=== PATIENT | female | born 1955 | race American Indian/Alaskan Native ===

== ENCOUNTER 2016-12-09 19:53 | Inpatient (IN) | payer OTHER ==
--- NOTE | 2016-12-09 20:45 | Emergency Department Report ---
ED Chest Pain HPI - General Chief Complaint: Chest Pain Stated Complaint: CHEST PAIN Time Seen by Provider: 12/09/16 20:09 Source: patient, EMS Mode of arrival: Stretcher Limitations: No Limitations - History of Present Illness Initial Comments: This is a 61-year-old Afro-[place] female presents to the emergency department via EMS from home with complaint of midsternal and left-sided chest pain with some radiation to the left side of the neck and left arm has been going on for the past 2 days. She thinks that it stemmed from the fact that her air conditioning is broken for the past week. She did not take anything at home for symptoms prior to presentation. It is associated with some shortness of breath, nausea, vomiting. She was found to have a pulse ox of 90% on room air with EMS that went up with supplemental oxygen. She has a past medical history of non-insulin dependent diabetes and fibromyalgia. She denies any history of MT, CVA, PE/DVT. Primary care doctor is a Dr. Cartagena. She does not have a tongue carrier. No recent travel or sick contacts at home. - Related Data Home Medications Medication Instructions Recorded Confirmed Last Taken Unobtainable 12/09/16 12/09/16 Unknown Allergies Allergy/AdvReac Type Severity Reaction Status Date / Time No Known Allergies Allergy Verified 12/09/16 20:01 Heart Score - HEART Score History: Moderately suspicious EKG: Non-specific Age: 45-65 Risk factors: 1-2 risk factors Troponin: < normal limit HEART Score: 4 - Critical Actions Critical Actions: 4-6 pts:12-16.6% risk of adverse cardiac event. Should be admitted ED Review of Systems ROS: Stated complaint: CHEST PAIN Other details as noted in HPI Comment: All other systems reviewed and negative Constitutional: denies: chills, fever Eyes: denies: eye pain, eye discharge, vision change ENT: denies: ear pain, throat pain Respiratory: cough, shortness of breath Cardiovascular: chest pain. denies: palpitations Gastrointestinal: nausea, vomiting Genitourinary: denies: urgency, dysuria, discharge Musculoskeletal: denies: back pain, joint swelling, arthralgia Skin: denies: rash, lesions Neurological: denies: headache, weakness, paresthesias ED Past Medical Hx - Past Medical History Previous Medical History?: Yes Hx Diabetes: Yes Additional medical history: Fibroidmylagia - Surgical History Past Surgical History?: No - Medications Home Medications: Home Medications Medication Instructions Recorded Confirmed Last Taken Type Unobtainable 12/09/16 12/09/16 Unknown History ED Physical Exam - General Limitations: No Limitations - Other Other exam information: GENERAL: The patient is well-developed well-nourished. HEENT: Normocephalic. Atraumatic. Extraocular motions are intact. Patient has moist mucous membranes. Pupils equal reactive to light bilaterally. NECK: Supple. Trachea is midline. CHEST/LUNGS: Clear to auscultation. No cough heard during examination. There is no respiratory distress noted. Chest pain is not reproducible to palpation of chest wall. HEART/CARDIOVASCULAR: Regular. There is mild to moderate tachycardia. There is no gallop rub or murmur. ABDOMEN: Abdomen is soft, nontender. Patient has normal bowel sounds. There is no abdominal distention. Obese habitus. SKIN: Skin is warm and dry. NEURO: The patient is awake, alert, and oriented. The patient is cooperative. The patient has no focal neurologic deficits. The patient has normal speech. MUSCULOSKELETAL: There is no tenderness or deformity. There is no limitation range of motion. There is no evidence of acute injury. ED Course Vital Signs 12/09/16 12/09/16 12/09/16 20:02 21:21 21:23 Pulse Rate 114 H 113 H Respiratory 18 18 12 Rate Blood Pressure 131/67 131/67 O2 Sat by Pulse 93 94 94 Oximetry 12/09/16 12/09/16 12/09/16 21:25 21:27 21:29 Pulse Rate 114 H 112 H 114 H Respiratory 22 12 16 Rate Blood Pressure 131/67 131/67 131/67 O2 Sat by Pulse 92 94 96 Oximetry 12/09/16 12/09/16 12/09/16 21:31 21:33 21:34 Pulse Rate 111 H 112 H 113 H Respiratory 14 14 21 Rate Blood Pressure 134/72 134/72 134/72 O2 Sat by Pulse 85 93 Oximetry 12/09/16 12/09/16 12/09/16 21:52 21:59 22:01 Pulse Rate 106 H Respiratory 18 17 Rate Blood Pressure 134/72 134/72 O2 Sat by Pulse 93 100 Oximetry 07/13/17 07/13/17 07/13/17 22:02 22:03 22:05 Pulse Rate 106 H 106 H 105 H Respiratory 15 20 20 Rate Blood Pressure 123/71 123/71 123/71 O2 Sat by Pulse 100 99 97 Oximetry 12/09/16 12/09/16 12/09/16 22:07 22:09 22:11 Pulse Rate 108 H 109 H 109 H Respiratory 16 16 29 H Rate Blood Pressure 123/71 123/71 123/71 O2 Sat by Pulse 95 96 100 Oximetry 12/09/16 12/09/16 12/09/16 22:13 22:15 22:17 Pulse Rate 109 H 107 H 105 H Respiratory 24 25 H 23 Rate Blood Pressure 123/71 123/71 123/71 O2 Sat by Pulse 100 100 99 Oximetry 12/09/16 12/09/16 12/09/16 22:19 22:21 22:23 Pulse Rate 108 H 107 H 107 H Respiratory 21 18 24 Rate Blood Pressure 123/71 123/71 123/71 O2 Sat by Pulse 99 100 100 Oximetry 12/09/16 12/09/16 12/09/16 22:25 22:27 22:29 Pulse Rate 107 H 108 H 109 H Respiratory 24 25 H 28 H Rate Blood Pressure 123/71 123/71 123/71 O2 Sat by Pulse 100 100 100 Oximetry 12/09/16 12/09/16 12/09/16 22:31 22:33 22:35 Pulse Rate 108 H 107 H 107 H Respiratory 25 H 26 H 27 H Rate Blood Pressure 123/71 123/71 134/72 O2 Sat by Pulse 100 100 100 Oximetry 12/09/16 12/09/16 12/09/16 22:37 22:39 22:41 Pulse Rate 107 H 107 H 107 H Respiratory 26 H 30 H 28 H Rate Blood Pressure 134/72 134/72 134/72 O2 Sat by Pulse 100 100 100 Oximetry 12/09/16 12/09/16 12/09/16 22:43 22:45 22:47 Pulse Rate 109 H 109 H 107 H Respiratory 26 H 31 H 21 Rate Blood Pressure 134/72 134/72 134/72 O2 Sat by Pulse 100 100 100 Oximetry 12/09/16 12/09/16 12/09/16 22:49 22:51 22:53 Pulse Rate 107 H 108 H 109 H Respiratory 23 25 H 24 Rate Blood Pressure 134/72 134/72 134/72 O2 Sat by Pulse 100 100 100 Oximetry 12/09/16 12/09/16 12/09/16 22:55 22:57 22:59 Pulse Rate 109 H 108 H 109 H Respiratory 28 H 21 23 Rate Blood Pressure 134/72 134/72 134/72 O2 Sat by Pulse 100 98 93 Oximetry 12/09/16 12/09/16 12/09/16 23:01 23:03 23:05 Pulse Rate 109 H 108 H 109 H Respiratory 19 17 19 Rate Blood Pressure 113/64 113/64 113/64 O2 Sat by Pulse 94 100 93 Oximetry 12/09/16 12/09/16 12/09/16 23:07 23:09 23:11 Pulse Rate 108 H 108 H 111 H Respiratory 24 25 H 16 Rate Blood Pressure 113/64 113/64 113/64 O2 Sat by Pulse 93 94 94 Oximetry 12/09/16 12/09/16 12/09/16 23:13 23:15 23:17 Pulse Rate 108 H 109 H 108 H Respiratory 22 24 24 Rate Blood Pressure 113/64 113/64 113/64 O2 Sat by Pulse 93 94 94 Oximetry 12/09/16 23:19 Pulse Rate 108 H Respiratory 32 H Rate Blood Pressure 113/64 O2 Sat by Pulse 93 Oximetry SONJA score - Sonja Score Age > 65: (0) No Aspirin use within the Past 7 Days: (0) No 3 or more CAD Risk Factors: (0) No 2 or more Angina events in past 24 hrs: (1) Yes Known CAD with more than 50% Stenosis: (0) No Elevated Cardiac Markers: (0) No ST Deviation Greater than 0.5mm: (0) No SONJA Score: 1 ED Medical Decision Making - Lab Data Result diagrams: 12/09/16 20:23 12/09/16 20:23 - EKG Data -: EKG Interpreted by Me EKG shows normal: sinus rhythm, axis, intervals, QRS complexes, ST-T waves (T- wave inversions to the inferior leads) Rate: tachycardia (120 bpm) - EKG Data When compared to previous EKG there are: previous EKG unavailable Interpretation: other (sinus tachycardia, normal axis, T-wave inversions to the inferior leads) - Radiology Data Radiology results: report reviewed, image reviewed interpreted by me: Chest x-ray does not show any obvious pneumonia, pneumothorax or pleural effusions. Mild cardiomegaly. PROCEDURE: CT ANGIO CHEST TECHNIQUE: Computerized tomographic angiography of the chest was performed after the IV injection of iodinated nonionic contrast including image processing. The image data was postprocessed using 2-dimensional multiplanar reformatted (MPR) and 3-dimensional (MIP and/or volume rendered) techniques. HISTORY: CP, elevated dimer COMPARISON: Chest x-ray today. FINDINGS: Lower neck: Enlarged heterogeneous thyroid gland with left lobe prominence with extension into the anterior superior mediastinum left paracentral location with multilobular multinodular appearance. Some of the masses are peripherally calcified such as left mid thyroid gland measuring 2.3 centimeters and similar size in the superior mediastinum posteriorly.. Recommend follow-up thyroid ultrasound further evaluate. Thyroid malignancy is the diagnosis of exclusion. Heart and pericardium: Normal. Thoracic aorta: Atherosclerosis aorta and branch vessels. Pulmonary vasculature: No significant PE. Lymph nodes: Scattered mediastinal adenopathy measuring 1 x 1.5 centimeters AP window right pretracheal areas. 1 x 1 centimeter in the right suprahilar area. Lungs/pleural space: Diffuse pulmonary emphysema with interstitial and patchy reticulonodular pattern throughout the lungs. There is a patchy airspace process in the left upper lobe medially suggesting infiltrative pneumonia however alveolar malignancy not excludable. There are scattered nodules and hazy nodules throughout the lungs including but not limited to: Round pulmonary nodule left apex measures 7 by 6 millimeters. Nonspecific hazy nodule right upper lung zone anteriorly 5 x 3 millimeters. Scattered hazy opacities in the lungs in the 1-2 millimeter range appearing nonspecific. Thickening in the mid lateral lung zones bilaterally suggesting scar-like cicatrix. Ovoid lesion in the right lower lung zone measuring 1.7 x 0.9 centimeters. Two hazy subjacent nodular opacities project in the left lower lung zone measuring in the 6 and 5 millimeter range image 64 with other nearby opacities measuring 10 millimeter 4 millimeter 3 millimeter 3 millimeter 5 millimeter emanating from the left infrahilar area. Small peripheral nodule in the left upper lung zone 5 millimeters. Underlying metastatic disease and or malignancy is the diagnosis of exclusion. Followup and further workup is advised. Musculoskeletal structures: Mild to moderate upper thoracic spine kyphosis. Slight patchy appearance of the bones. Degenerative changes. Defer to nuclear medicine bone scan evaluation as warranted.. Upper abdominal structures: Moderately enlarged heterogeneous liver. Diffuse pancreatic atrophy.. IMPRESSION: No evidence of PE Pulmonary emphysema with interstitial lung disease Reticular pattern with patchy areas of reticulonodular change and other areas of scattered nodules and hazy nodules. Metastatic disease is the diagnosis of exclusion. Underlying malignancy is not excludable. Followup and further workup is advised. Patchy airspace infiltrate left upper lobe, nonspecific Mild mediastinal adenopathy. Enlarged thyroid gland with multiple masses some of which are peripherally calcified on the left. Recommend thyroid ultrasound to further evaluate. Rule-out underlying thyroid malignancy. - Medical Decision Making 61-year-old female presents with a few days of chest pain as well as some shortness of breath with some nausea. Patient presents with tachycardia. First troponin negative. D-dimer elevated so a CT angiography was done. CT results show thyroid nodules, left upper lobe patchy opacity concerning for pneumonia and scattered lung nodules concerning for metastatic disease that needs to be ruled out as a diagnosis of exclusion. Patient had blood culture sent and started on Levaquin. She will be admitted to the hospital for further workup and evaluation of these findings and possible cardio consultation. She been accepted for admission by the hospitalist, Dr. Mayer. - Differential Diagnosis MT, CHF, pneumonia, PE Critical Care Time: No Critical care attestation.: If time is entered above; I have spent that time in minutes in the direct care of this critically ill patient, excluding procedure time. ED Disposition Clinical Impression: Thyroid nodule, Pulmonary nodules/lesions, multiple Chest pain Qualifiers: Chest pain type: unspecified Qualified Code(s): R07.9 - Chest pain, unspecified Pneumonia Qualifiers: Pneumonia type: due to unspecified organism Laterality: left Lung location: upper lobe of lung Qualified Code(s): J18.1 - Lobar pneumonia, unspecified organism Leukocytosis Qualifiers: Leukocytosis type: unspecified Qualified Code(s): D72.829 - Elevated white blood cell count, unspecified Disposition: 09 OP ADMIT IP TO THIS HOSP Is pt being admited?: Yes Condition: Stable Instructions: Chest Pain (ED), Bacterial Pneumonia (ED) Referrals: PRIMARY CARE, [Primary Care Provider] - 3-5 Days Time of Disposition: 23:42
[2016-12-09 20:48] LABS: Hematocrit 46.4 % (30.3-42.9); Mean Corpuscular HGB Conc 32 % (30-34); Mean Corpuscular Hemoglobin 26 pg (28-32); Mean Corpuscular Volume 81 fl (79-97); Platelet Count 222 K/mm3 (140-440); Red Blood Count 5.72 M/mm3 (3.65-5.03); Red Cell Distribution Width 14.4 % (13.2-15.2)
[2016-12-09 20:49] LABS: White Blood Count 27.8 K/mm3 (4.5-11.0)
[2016-12-09 21:01] LABS: Anion Gap 23 mmol/L; BUN/Creatinine Ratio 8.88; Blood Urea Nitrogen 8 mg/dL (7-17); Calcium 8.9 mg/dL (8.4-10.2); Carbon Dioxide 22 mmol/L (22-30); Chloride 91.2 mmol/L (98-107); Glucose 323 mg/dL (65-100); Potassium 3.9 mmol/L (3.6-5.0); Sodium 132 mmol/L (137-145)
[2016-12-09 21:18] LABS: Basophils % (Manual) 0 % (0.0-1.8); Blastocytes % (Manual) 0 %; Eosinophils % (Manual) 0 % (0.0-4.3)
[2016-12-09] MEDS ORDERED: MORPHINE IV ONE (21:18)
[2016-12-09 21:19] LABS: Diff Status Complete; RBC Morphology Normal
--- NOTE | 2016-12-09 21:31 | XRay Report ---
FINAL REPORT PROCEDURE: XR CHEST 1V AP TECHNIQUE: Chest radiograph anteroposterior view. CPT 47140 HISTORY: CP COMPARISON: No prior studies are available for comparison. FINDINGS: Heart: Normal. Mediastinum/Vessels: Mild central congestion. Fullness in the upper mediastinum may reflect thyroid enlargement. Lungs/Pleural space: COPD suspected with mild peribronchial cuffing and slight central bronchiectasis. Shallow inspiration with minimal lung base atelectasis Bony thorax: No acute osseous abnormality. Life support devices: None. IMPRESSION: Shallow inspiration with minimal lung base atelectasis.
[2016-12-09] MEDS ORDERED: ZOFRAN ONE (21:43)
[2016-12-09] MEDS ORDERED: ZOFRAN IV ONE (21:45)
--- NOTE | 2016-12-09 22:36 | Cat Scan Report ---
FINAL REPORT PROCEDURE: CT ANGIO CHEST TECHNIQUE: Computerized tomographic angiography of the chest was performed after the IV injection of iodinated nonionic contrast including image processing. The image data was postprocessed using 2-dimensional multiplanar reformatted (MPR) and 3-dimensional (MIP and/or volume rendered) techniques. HISTORY: CP, elevated dimer COMPARISON: Chest x-ray today. FINDINGS: Lower neck: Enlarged heterogeneous thyroid gland with left lobe prominence with extension into the anterior superior mediastinum left paracentral location with multilobular multinodular appearance. Some of the masses are peripherally calcified such as left mid thyroid gland measuring 2.3 centimeters and similar size in the superior mediastinum posteriorly.. Recommend follow-up thyroid ultrasound further evaluate. Thyroid malignancy is the diagnosis of exclusion. Heart and pericardium: Normal. Thoracic aorta: Atherosclerosis aorta and branch vessels. Pulmonary vasculature: No significant PE. Lymph nodes: Scattered mediastinal adenopathy measuring 1 x 1.5 centimeters AP window right pretracheal areas. 1 x 1 centimeter in the right suprahilar area. Lungs/pleural space: Diffuse pulmonary emphysema with interstitial and patchy reticulonodular pattern throughout the lungs. There is a patchy airspace process in the left upper lobe medially suggesting infiltrative pneumonia however alveolar malignancy not excludable. There are scattered nodules and hazy nodules throughout the lungs including but not limited to: Round pulmonary nodule left apex measures 7 by 6 millimeters. Nonspecific hazy nodule right upper lung zone anteriorly 5 x 3 millimeters. Scattered hazy opacities in the lungs in the 1-2 millimeter range appearing nonspecific. Thickening in the mid lateral lung zones bilaterally suggesting scar-like cicatrix. Ovoid lesion in the right lower lung zone measuring 1.7 x 0.9 centimeters. Two hazy subjacent nodular opacities project in the left lower lung zone measuring in the 6 and 5 millimeter range image 64 with other nearby opacities measuring 10 millimeter 4 millimeter 3 millimeter 3 millimeter 5 millimeter emanating from the left infrahilar area. Small peripheral nodule in the left upper lung zone 5 millimeters. Underlying metastatic disease and or malignancy is the diagnosis of exclusion. Followup and further workup is advised. Musculoskeletal structures: Mild to moderate upper thoracic spine kyphosis. Slight patchy appearance of the bones. Degenerative changes. Defer to nuclear medicine bone scan evaluation as warranted.. Upper abdominal structures: Moderately enlarged heterogeneous liver. Diffuse pancreatic atrophy.. IMPRESSION: No evidence of PE Pulmonary emphysema with interstitial lung disease Reticular pattern with patchy areas of reticulonodular change and other areas of scattered nodules and hazy nodules. Metastatic disease is the diagnosis of exclusion. Underlying malignancy is not excludable. Followup and further workup is advised. Patchy airspace infiltrate left upper lobe, nonspecific Mild mediastinal adenopathy. Enlarged thyroid gland with multiple masses some of which are peripherally calcified on the left. Recommend thyroid ultrasound to further evaluate. Rule-out underlying thyroid malignancy. Other details above.
[2016-12-09] MEDS ORDERED: LEVAQUIN 750MG/150ML 750 MG/150 ML BAG IV ONE (22:57)
[2016-12-09] MEDS ORDERED: DUONEB *Not for PRN Use IH ONE (23:42)
[2016-12-10] MEDS ORDERED: ZOFRAN IV PRN (00:58)
[2016-12-10] MEDS ORDERED: MORPHINE IV PRN (00:59)
[2016-12-10] MEDS ORDERED: NITROSTAT SL PRN (01:00)
--- NOTE | 2016-12-10 01:06 | History and Physical Report ---
History of Present Illness Date of examination: 12/10/16 Date of admission: 12/10/16 Chief complaint: Chief complaint is chest pain, other complaints including shortness of breath History of present illness: History of present illness, patient is a 61-year-old female who has been having substernal chest pain going on for about 2 days the pain is sharp in consistency radiates to the left side of the neck and left arm. Pain is associated with shortness of breath, nausea & vomiting, there is no history of dizziness, there is no history of fever or chills and also patient denied history of cough with patient stated she feels tired. Past History Past Medical History: arthritis, diabetes, hypertension, other (FIBROMYALGIA) Past Surgical History: bowel surgery Social history: other (SMOKES MARIJUANA) Medications and Allergies Allergies Allergy/AdvReac Type Severity Reaction Status Date / Time No Known Allergies Allergy Verified 12/09/16 20:01 Home Medications Medication Instructions Recorded Confirmed Last Taken Type Unobtainable 12/09/16 12/09/16 Unknown History Active Meds: Active Medications Acetaminophen (Tylenol) 650 mg PO Q4H PRN PRN Reason: For Pain/Fever/Headache Aspirin (Aspirin) 325 mg PO QDAY [facility] Heparin Sodium (Porcine) (Heparin) 5,000 unit SUB-Q Q12HR [facility] Azithromycin 500 mg/ Sodium (Chloride) 250 mls @ 250 mls/hr IV Q24HR [facility] Ceftriaxone Sodium (Rocephin/Ns 1 Gm/50 Ml) 1 gm in 50 mls @ 100 mls/hr IV Q24HR [facility] PRN Reason: Protocol Morphine Sulfate (Morphine) 2 mg IV Q3H PRN PRN Reason: Pain, Moderate (4-6) Nitroglycerin (Nitrostat) 0.4 mg SL Q5M [facility] Stop: 12/10/16 01:11 Nitroglycerin (Nitro-Bid 2%) 0.5 inch TP Q6H [facility] PRN Reason: Protocol Ondansetron HCl (Zofran) 4 mg IV Q6H PRN PRN Reason: Nausea And Vomiting Review of Systems Constitutional: fatigue, no weight loss, no weight gain, no fever, no sweats, no malaise, no lethargy, no poor appetite Eyes: bilateral: other (NO BILATERAL EYE SYMPTOMS) Ears, nose, mouth and throat: no ear pain, no ear discharge, no tinnitis, no decreased hearing, no nasal congestion, no nasal discharge, no sinus pressure, no dental pain, no mouth pain, no dysphagia, no hoarseness, no sore throat, no swelling in mouth, no swelling in throat, no headache, no vertigo, no pain front of neck Breasts: deferred Cardiovascular: chest pain, shortness of breath, high blood pressure, no orthopnea, no palpitations, no rapid/irregular heart beat, no syncope, no lightheadedness, no dyspnea on exertion Respiratory: shortness of breath, no cough, no cough with sputum, no hemoptysis , no congestion, no wheezing, no pain on inspiration, no respiratory infections Gastrointestinal: nausea, vomiting, no abdominal pain, no diarrhea, no constipation, no change in bowel habits, no hematemesis, no melena, no hematochezia, no loss of appetite, no early satiety, no heartburn, no jaundice, no dyspepsia/bloating, no early satiety Genitourinary Female: no dyspareunia, no menorrhagia, no urinary frequency, no stress incontinence, no post void dribbling, no incomplete emptying, no urge incontinence, no mixed incontinence, no vaginal odor, no abnormal vaginal bleeding, no vaginal dryness, no decreased libido Menstruation: postmenopausal Rectal: no pain, no incontinence, no itching, no hemorrhoids, no flatulence Musculoskeletal: no neck stiffness, no neck pain, no low back pain, no shooting leg pain, no morning stiffness, no muscle weakness, no muscle cramps, no myalgias, no atrophy, no frequent falls, no fractures, no loss of height, no prior amputations Integumentary: no rash, no pruritis, no redness, no sores, no wounds, no jaundice, no boils, no bullae, no darkening of skin, no depigmentation, no dryness, no color changes, no change in hair/nails, no brittle nails, no hirsutism, no foot/leg ulcers, no onychomycosis Neurological: no paralysis, no weakness, no parathesias, no numbness, no tingling, no seizures, no syncope, no tremors, no headaches, no migraines, no convulsions, no change in speech, no change in mentation, no confusion, no memory loss, no motor disturbance, no sensory deficit, no double vision, no loss of vision, no hearing difficulties, no burning pain, no paralysis Psychiatric: no change in sleep habits, no sleep disturbances, no insomnia, no hypersomnia, no change in appetite, no change in libido, no suicidal ideation, no disorientation, no depression, no hopelessness, no anhedonia, no anxiety attacks, no difficulties concentrating, no confusion, no irritability, no sadness/tearfullness Endocrine: no cold intolerance, no heat intolerance, no polyphagia, no excessive thirst, no polydipsia, no polyuria, no excessive sweating, no increase in ring/shoe/hat size, no deepening of the voice, no thyroid mass, no high blood sugars, no low blood sugars, no recent glucocorticoid use Hematologic/Lymphatic: no easy bruising, no easy bleeding, no lymphadenopathy, no lymphedema, no thrombophilia Allergic/Immunologic: no urticaria, no allergic rhinitis, no persistent infections, no anaphylaxis, no gluten intolerance, no seasonal allergies Exam - Constitutional Vitals: Temp Pulse Resp BP Pulse Ox 112 H 20 113/64 93 12/09/16 23:55 12/09/16 23:55 12/09/16 23:19 12/09/16 23:19 General appearance: Present: no acute distress - EENT Eyes: Present: PERRL, EOM intact. Absent: conjunctival injection, miosis ENT: hearing intact, clear oral mucosa - Neck Neck: Present: supple, normal ROM. Absent: rigidity, enlarged thyroid, carotid bruits - Respiratory Respiratory effort: normal - Cardiovascular Rhythm: regular Heart Sounds: Present: S1 & S2. Absent: gallop, systolic murmur, diastolic murmur, rub, click - Extremities Extremities: no ischemia, No edema Peripheral Pulses: within normal limits - Abdominal General gastrointestinal: Present: soft, non-tender, non-distended, normal bowel sounds. Absent: tender, distended, rigid, hypoactive bowel sounds, hepatomegaly, splenomegaly Female genitourinary: Present: deferred - Rectal Rectal Exam: deferred - Integumentary Integumentary: Present: clear, warm, dry. Absent: jaundice, clammy, normal turgor, decreased turgor - Musculoskeletal Musculoskeletal: strength equal bilaterally - Psychiatric Psychiatric: appropriate mood/affect - Neurologic Neurologic: CNII-XII intact Results - Labs CBC & Chem 7: 12/09/16 20:23 12/09/16 20:23 Labs: Laboratory Last Values WBC 27.8 K/mm3 (4.5-11.0) H 12/09/16 20:23 RBC 5.72 M/mm3 (3.65-5.03) H 12/09/16 20:23 Hgb 15.0 gm/dl (10.1-14.3) H 12/09/16 20:23 Hct 46.4 % (30.3-42.9) H 12/09/16 20:23 MCV 81 fl (79-97) 12/09/16 20:23 MCH 26 pg (28-32) L 12/09/16 20:23 MCHC 32 % (30-34) 12/09/16 20:23 RDW 14.4 % (13.2-15.2) 12/09/16 20:23 Plt Count 222 K/mm3 (140-440) 12/09/16 20:23 Add Manual Diff Complete 12/09/16 20:23 Total Counted 200 12/09/16 20:23 Seg Neuts % (Manual) 90.0 % (40.0-70.0) H 12/09/16 20:23 Band Neutrophils % 0 % 12/09/16 20:23 Lymphocytes % (Manual) 5.0 % (13.4-35.0) L 12/09/16 20:23 Reactive Lymphs % (Man) 0 % 12/09/16 20:23 Monocytes % (Manual) 5.0 % (0.0-7.3) 12/09/16 20:23 Eosinophils % (Manual) 0 % (0.0-4.3) 12/09/16 20:23 Basophils % (Manual) 0 % (0.0-1.8) 12/09/16 20:23 Metamyelocytes % 0 % 12/09/16 20:23 Myelocytes % 0 % 12/09/16 20:23 Promyelocytes % 0 % 12/09/16 20:23 Blast Cells % 0 % 12/09/16 20:23 Nucleated RBC % Not Reportable 12/09/16 20:23 Seg Neutrophils # Man 25.0 K/mm3 (1.8-7.7) H 12/09/16 20:23 Band Neutrophils # 0.0 K/mm3 12/09/16 20:23 Lymphocytes # (Manual) 1.4 K/mm3 (1.2-5.4) 12/09/16 20:23 Abs React Lymphs (Man) 0.0 K/mm3 12/09/16 20:23 Monocytes # (Manual) 1.4 K/mm3 (0.0-0.8) H 12/09/16 20:23 Eosinophils # (Manual) 0.0 K/mm3 (0.0-0.4) 12/09/16 20:23 Basophils # (Manual) 0.0 K/mm3 (0.0-0.1) 12/09/16 20:23 Metamyelocytes # 0.0 K/mm3 12/09/16 20:23 Myelocytes # 0.0 K/mm3 12/09/16 20:23 Promyelocytes # 0.0 K/mm3 12/09/16 20:23 Blast Cells # 0.0 K/mm3 12/09/16 20:23 WBC Morphology Not Reportable 12/09/16 20:23 Hypersegmented Neuts Not Reportable 12/09/16 20:23 Hyposegmented Neuts Not Reportable 12/09/16 20:23 Hypogranular Neuts Not Reportable 12/09/16 20:23 Smudge Cells Not Reportable 12/09/16 20:23 Toxic Granulation Not Reportable 12/09/16 20:23 Toxic Vacuolation Not Reportable 12/09/16 20:23 Dohle Bodies Not Reportable 12/09/16 20:23 Pelger-Huet Anomaly Not Reportable 12/09/16 20:23 [place] Rods Not Reportable 12/09/16 20:23 Platelet Estimate Appears normal 12/09/16 20:23 Clumped Platelets Not Reportable 12/09/16 20:23 Plt Clumps, EDTA Not Reportable 12/09/16 20:23 Large Platelets Not Reportable 12/09/16 20:23 Giant Platelets Not Reportable 12/09/16 20:23 Platelet Satelliting Not Reportable 12/09/16 20:23 Plt Morphology Comment Not Reportable 12/09/16 20:23 RBC Morphology Normal 12/09/16 20:23 Dimorphic RBCs Not Reportable 12/09/16 20:23 Polychromasia Not Reportable 12/09/16 20:23 Hypochromasia Not Reportable 12/09/16 20:23 Poikilocytosis Not Reportable 12/09/16 20:23 Anisocytosis Not Reportable 12/09/16 20:23 Microcytosis Not Reportable 12/09/16 20:23 Macrocytosis Not Reportable 12/09/16 20:23 Spherocytes Not Reportable 12/09/16 20:23 Pappenheimer Bodies Not Reportable 12/09/16 20:23 Sickle Cells Not Reportable 12/09/16 20:23 Target Cells Not Reportable 12/09/16 20:23 Tear Drop Cells Not Reportable 12/09/16 20:23 Ovalocytes Not Reportable 12/09/16 20:23 Helmet Cells Not Reportable 12/09/16 20:23 [place] Bodies Not Reportable 12/09/16 20:23 [place] Rings Not Reportable 12/09/16 20:23 [place] Cells Not Reportable 12/09/16 20:23 Bite Cells Not Reportable 12/09/16 20:23 Crenated Cell Not Reportable 12/09/16 20:23 Elliptocytes Not Reportable 12/09/16 20:23 Acanthocytes (Spur) Not Reportable 12/09/16 20:23 Rouleaux Not Reportable 12/09/16 20:23 Hemoglobin C Crystals Not Reportable 12/09/16 20:23 Schistocytes Not Reportable 12/09/16 20:23 Malaria parasites Not Reportable 12/09/16 20:23 Daniel Bodies Not Reportable 12/09/16 20:23 Hem Pathologist Commnt No 12/09/16 20:23 D-Dimer 235.71 ng/mlDDU (0-234) H 12/09/16 20:43 Sodium 132 mmol/L (137-145) L 12/09/16 20:23 Potassium 3.9 mmol/L (3.6-5.0) 12/09/16 20:23 Chloride 91.2 mmol/L (98-107) L 12/09/16 20:23 Carbon Dioxide 22 mmol/L (22-30) 12/09/16 20:23 Anion Gap 23 mmol/L 12/09/16 20:23 BUN 8 mg/dL (7-17) 12/09/16 20:23 Creatinine 0.9 mg/dL (0.7-1.2) 12/09/16 20:23 Estimated GFR > 60 ml/min 12/09/16 20:23 BUN/Creatinine Ratio 8.88 % 12/09/16 20:23 Glucose 323 mg/dL (65-100) H 12/09/16 20:23 Calcium 8.9 mg/dL (8.4-10.2) 12/09/16 20:23 Troponin T < 0.010 ng/mL (0.00-0.029) 12/09/16 23:06 Assessment and Plan - Patient Problems (1) Chest pain Current Visit: Yes Status: Acute Qualifiers: Chest pain type: unspecified Ischemic chest pain type: I Qualified Code(s ): R07.9 - Chest pain, unspecified Plan to address problem: Patient will be admitted to medical floor on telemetry and will have cardiac enzyme troponin checked every 6 hours 2 levels, patient will also be nothing by mouth for LEXISCAN stress dose and will be on aspirin 325 mg by mouth daily patient will be on Nitropaste half inch to anterior chest wall every 6 hours will be on oxygen by nasal cannula per chest pain Protocol. Patient will be on IV morphine 2 mg every 3 hours as needed for chest pain, pressure will have pulmonary consult with Dr. Rodriguez for multiple pulmonary nodules and family history of lung cancer in the mother. Patient will be on IV Zithromax 500 mg every 24 hours and IV ceftriaxone 1 g every 24 hours, patient will be on Tylenol 650 mg by mouth every 4 hours as needed for fever and Headache. (2) Leukocytosis Current Visit: Yes Status: Acute Qualifiers: Leukocytosis type: unspecified Qualified Code(s): D72.829 - Elevated white blood cell count, unspecified (3) Pneumonia Current Visit: Yes Status: Acute Qualifiers: Pneumonia type: due to unspecified organism Aspiration pneumonia type: A Laterality: left Lung location: upper lobe of lung Qualified Code(s): J18.1 - Lobar pneumonia, unspecified organism (4) Pulmonary nodules/lesions, multiple Current Visit: Yes Status: Acute (5) Thyroid nodule Current Visit: Yes Status: Acute
[2016-12-10] MEDS ORDERED: NITRO-BID 2% TP ONE (01:36)
[2016-12-10] MEDS: NITRO-BID 2% TP SCH ×4 (02:20→17:28)
[2016-12-10] MEDS ORDERED: LEXISCAN IV ONE ×2 (10:14→10:24)
--- NOTE | 2016-12-10 11:25 | Consultation ---
History of Present Illness Consult date: 12/10/16 Requesting physician: MARIO MOTT Reason for consult: abnormal CXR/CT, other (Multiple Pulmonary Nodules) History of present illness: PULMONARY/CCM PROGRESS NOTE (Full dictation # [id number]) Please see dictated notes for full details Past History Past Medical History: arthritis, diabetes, hypertension, other (FIBROMYALGIA) Past Surgical History: bowel surgery Social history: other (SMOKES MARIJUANA) Medications and Allergies Allergies Allergy/AdvReac Type Severity Reaction Status Date / Time No Known Allergies Allergy Verified 12/09/16 20:01 Home Medications Medication Instructions Recorded Confirmed Last Taken Type Unobtainable 12/09/16 12/09/16 Unknown History Active Meds: Active Medications Acetaminophen (Tylenol) 650 mg PO Q4H PRN PRN Reason: For Pain/Fever/Headache Aspirin (Aspirin) 325 mg PO QDAY [facility] Heparin Sodium (Porcine) (Heparin) 5,000 unit SUB-Q Q12HR [facility] Azithromycin 500 mg/ Sodium (Chloride) 250 mls @ 250 mls/hr IV Q24HR [facility] Ceftriaxone Sodium (Rocephin/Ns 1 Gm/50 Ml) 1 gm in 50 mls @ 100 mls/hr IV Q24HR [facility] PRN Reason: Protocol Morphine Sulfate (Morphine) 2 mg IV Q3H PRN PRN Reason: Pain, Moderate (4-6) Nitroglycerin (Nitro-Bid 2%) 0.5 inch TP QIDNTG [facility] PRN Reason: Protocol Last Admin: 12/10/16 05:30 Dose: 0.5 inch Ondansetron HCl (Zofran) 4 mg IV Q6H PRN PRN Reason: Nausea And Vomiting Last Admin: 12/10/16 02:21 Dose: 4 mg Pneumococcal Polyvalent Vaccine (Pneumovax 23) 0.5 ml IM .ONCE ONE Stop: 12/10/16 12:01 Physical Examination Vital signs: Vital Signs Resp Pulse Ox 18 93 12/09/16 20:02 12/09/16 20:02 Results - Laboratory Findings CBC and BMP: 12/09/16 20:23 12/09/16 20:23 PT/INR, D-dimer D-Dimer 235.71 ng/mlDDU (0-234) H 12/09/16 20:43
--- NOTE | 2016-12-10 11:51 | Event Note ---
Date: 12/10/16 Stress MPI: 1. Normal myocardial perfusion scan without evidence of significant ischemia or prior infarct 2. Normal left ventricular systolic performance without evidence of TID
[2016-12-10] MEDS ORDERED: PNEUMOVAX 23 IM ONE (12:00)
[2016-12-10] MEDS: ROCEPHIN/NS 1 GM/50 ML 1 GM/50 ML BAG IV SCH (12:00)
[2016-12-10] MEDS: ASPIRIN PO SCH (12:09)
[2016-12-10] MEDS: ZITHROMAX 500 MG in NACL 0.9% 250ML 250 ML IV SCH (12:18)
[2016-12-10] MEDS: HEPARIN SUB-Q SCH ×2 (12:19→21:45)
--- NOTE | 2016-12-10 12:28 | Admit Criteria Form ---
Admission Criteria Documentation: CHEST PAIN Clinical Indications for Admission to Inpatient Care (Place 'X' for any and all applicable criteria): Admission is indicated for chest pain and ANY ONE of the following(1)(2)(3)(4)(5 ): [ ]I. Angina with acute coronary syndrome (Also use Myocardial Infarction or Angina guideline) [ ]II. Hemodynamic instability [ ]III. Angina needing acute intervention as indicated by ALL of the following( 11)(12): [ ]a) Unstable angina is present as indicated by angina that is ANY ONE of the following: [ ]i) New onset [ ]ii) Nocturnal [ ]iii) Prolonged at rest [ ]iv) Progressive [ ]b) Angina warrants acute intervention as indicated by ANY ONE of the following: [ ]i) Recurrent angina (e.g, not responding as previously to treatment) [ ]ii) Angina at rest or with low-level activities despite initial medical therapy [ ]iii) New or presumably new ST-segment depression on ECG [ ]iv) Signs or symptoms of heart failure (eg, dyspnea, pulmonary edema) [ ]v) New or worsening mitral regurgitation [ ]vi) Hemodynamic instability [ ]vii) Dangerous arrhythmia (eg, sustained ventricular tachycardia) [ ]viii) History of percutaneous coronary intervention within 6 months [ ]ix) History of coronary artery bypass graft surgery [ ]x) SONJA risk score of 2 or greater[A] [ ]xi) History of Diabetes(14) [ ]xii) High-risk cardiac ischemia findings on noninvasive testing (e.g, echocardiogram, treadmill testing, nuclear scan) [ ]xiii) Chronic renal insufficiency (ie, estimated GFR less than 60 mL/min/1.732m) [ ]xiv) Left ventricular ejection fraction less than 40% [ ]IV. Evidence of AR (eg, cardiac biomarkers positive, ST-segment elevation on ECG) also use Myocardial Infarction Criteria Form. [ ]V. Pulmonary edema [ ]. Respiratory distress [ ]VII. Chest pain indicative of serious diagnosis other than coronary artery disease (eg, aortic dissection) [ ]VIII. Contraindications and/or Inappropriate clinical situations for Observational Care in patients with Chest Pain, when ANY ONE of the following is required: [ ]a) Patient with risk factor for pulmonary embolism, acute coronary syndrome and myocardial infarction (18) [ ]b) Patient with Pulmonary embolism require an average LOS of 4.3 days, therefore emergency department observation management is inappropriate 18,23 [ ]c) Painful condition/s in the elderly, have the highest rate of recidivism after emergency department observation management (10.8%) 20,21,22 [ ]d) Elevated cardiac biomarker requires intensive and exhaustive care (19) [X ]IX. General contraindications and/or Inappropriate clinical situations for Observational Care in patients with Chest Pain, when ANY ONE of the following is required: [X ]a) Prediction of prolongation of LOS based on ANY ONE of the following may be considered as a contraindication for observational care 2, 3, 4, 5, 6, 7, 8, 9, 10, 11 [ ]i) Age > 65 yrs. [X ]ii) Patient arriving by ambulance [ ]iii) Patient with high acuity [ ]iv) Patient requiring vital sign monitoring [ ]v) Patient on IV medication [ ]b) Systolic blood pressures 180mmHg 3,12 [ ]c) Patient with altered mental status including delirium and other alteration of consciousness, (3) [ ]d) Patient whose discharge disposition will be to a [facility] home or rehabilitation home should not be managed in Emergency Department Observation Unit. CMS rule requires 3 days hospital stay before such placement. 3,13 [ ]e) Patient with failure to thrive due to broad array of etiologies 3,16,17 [ ]f) Inability to ambulate 3,14 Extended stay beyond goal length of stay may be needed for (1)(28): [ ]a) Specific condition diagnosed after evaluation (eg, pulmonary embolism, aortic dissection) [ ]b) Unstable angina [ ]c) Continued suspicion of acute coronary syndrome with inability to complete needed cardiac evaluation (eg, patient clinically unable to undergo stress testing) [ ]d) Myocardial infarction (Contents from ANGINA and CHEST PAIN clinical indications for admission to inpatient care have been integrated in this form) The original [facility] content created by [employer] has been revised. The portions of the content which have been revised are identified through the use of italic text or in bold, and [facility] [employer] has neither reviewed nor approved the modified material. All other unmodified content is copyright [facility]. Please see references footnoted in the original [facility] [employer] edition 2016 Admission Criteria Met: Yes
[2016-12-10] MEDS ORDERED: NACL 0.9% 250ML 250 ML ONE (14:05)
--- NOTE | 2016-12-10 17:38 | Event Note ---
Date: 12/10/16 She was admitted this morning with altered level of consciousness generalized weakness and fever He did medical records reviewed, agree with current management Follow cultures, recent patchy infiltrates on CT, pulmonary critical consultation Closely monitor, continue current management
[2016-12-11] MEDS: TYLENOL PO PRN (05:55)
[2016-12-11] MEDS: NITRO-BID 2% TP SCH ×5 (05:56→17:18)
[2016-12-11] MEDS: ASPIRIN PO SCH (09:50)
[2016-12-11] MEDS: HEPARIN SUB-Q SCH ×2 (09:50→22:55)
[2016-12-11] MEDS: ROCEPHIN/NS 1 GM/50 ML 1 GM/50 ML BAG IV SCH (09:50)
[2016-12-11] MEDS: ZITHROMAX 500 MG in NACL 0.9% 250ML 250 ML IV SCH (10:41)
[2016-12-11] MEDS ORDERED: PNEUMOVAX 23 IM ONE (12:00)
[2016-12-11 12:01] LABS: Hematocrit 40.9 % (30.3-42.9); Hemoglobin 13.6 gm/dl (10.1-14.3); Mean Corpuscular HGB Conc 33 % (30-34); Mean Corpuscular Hemoglobin 27 pg (28-32); Mean Corpuscular Volume 81 fl (79-97); Platelet Count 236 K/mm3 (140-440); Red Blood Count 5.04 M/mm3 (3.65-5.03); Red Cell Distribution Width 14.3 % (13.2-15.2)
[2016-12-11 12:05] LABS: Anion Gap 19 mmol/L; BUN/Creatinine Ratio 14.44; Blood Urea Nitrogen 13 mg/dL (7-17); Calcium 9.1 mg/dL (8.4-10.2); Carbon Dioxide 24 mmol/L (22-30); Chloride 90.8 mmol/L (98-107); Glucose 380 mg/dL (65-100); Potassium 4.3 mmol/L (3.6-5.0); Sodium 129 mmol/L (137-145)
[2016-12-11 12:22] LABS: White Blood Count 21.5 K/mm3 (4.5-11.0)
[2016-12-11 14:30] LABS: Anisocytosis 1+; Basophils % (Manual) 0 % (0.0-1.8); Blastocytes % (Manual) 0 %; Diff Status Complete; Eosinophils % (Manual) 0 % (0.0-4.3); Platelet Estimate Consistent w Auto
--- NOTE | 2016-12-11 16:17 | Progress Note ---
Subjective Date of service: 12/11/16 Interval history: Seen and examined at bedside; 24 hour events reviewed; nursing and respiratory care staff consulted; no adverse overnight events reported to me; Objective Vital Signs - 12hr 12/11/16 12/11/16 12/11/16 05:30 09:00 13:00 Temperature 98.4 F 98.9 F 98.1 F Pulse Rate [ 92 H 98 H 90 Apical] Pulse Rate [ 92 H 98 H 90 Left Dorsalis Pedis] Pulse Rate [ 92 H 98 H 90 Left Radial] Pulse Rate [ 92 H 98 H 90 Right Dorsalis Pedis] Pulse Rate [ 92 H 98 H 90 Right Radial] Respiratory 18 18 18 Rate Blood Pressure 153/70 129/81 141/84 [Right Arm] O2 Sat by Pulse 95 95 96 Oximetry 12/11/16 13:01 Temperature Pulse Rate [ Apical] Pulse Rate [ Left Dorsalis Pedis] Pulse Rate [ Left Radial] Pulse Rate [ Right Dorsalis Pedis] Pulse Rate [ Right Radial] Respiratory Rate Blood Pressure [Right Arm] O2 Sat by Pulse 95 Oximetry CBC and BMP: 12/11/16 10:56 12/11/16 10:56 ABG, PT/INR, D-dimer: PT/INR, D-dimer D-Dimer 235.71 ng/mlDDU (0-234) H 12/09/16 20:43 Abnormal lab findings: Abnormal Labs 12/11/16 12/11/16 10:56 10:56 WBC 21.5 H RBC 5.04 H MCH 27 L Seg Neuts % (Manual) 80.0 H Lymphocytes % (Manual) 13.0 L Seg Neutrophils # Man 17.2 H Monocytes # (Manual) 1.5 H Sodium 129 L Chloride 90.8 L Glucose 380 H
--- NOTE | 2016-12-11 17:08 | Progress Note ---
Assessment and Plan Assessment and plan: --chest pain, Evaluation for acute coronary syndrome Lexiscan stress test negative for reversible ischemia, normal left ventricle function, continue current cardiac medications --Pneumonia probably community-acquired IV antibiotics, oxygen titrate O2 sats more than 90%, follow cultures, cough medicine, supportive care --Hyponatremia; replacement therapy, closely monitor levels --Incidental findings of multiple pulmonary nodules and lesions; No symptoms, pulmonary following for further evaluation and management --Thyroid nodule; CT-guided biopsy in 2 days --Leukocytosis secondary to underlying sepsis and pneumonia Trending down, continue antibiotics, supportive care --DVT prophylaxis Lovenox --Full CODE STATUS We will closely monitor the patient and just the management as needed Pulmonary evaluation and recommendations noted and appreciated History Interval history: Patient seen and evaluated in her room this morning medical records reviewed No new events reported by the nursing staff, stress test is negative for reversible ischemia and preserved left ventricular function Patient feels better denies any chest pain or shortness of breath Alert awake oriented 3 not in acute distress, vital signs reviewed Hospitalist Physical - Constitutional Vitals: Temp Pulse Resp BP Pulse Ox 98.1 F 90 18 141/84 95 12/11/16 13:00 12/11/16 13:00 12/11/16 13:00 12/11/16 13:00 12/11/16 13:01 General appearance: Present: no acute distress, well-nourished, obese - EENT Eyes: Present: PERRL, EOM intact - Neck Neck: Present: supple, normal ROM - Respiratory Respiratory effort: normal Respiratory: bilateral: diminished, rhonchi (occasional), negative: rales, wheezing - Cardiovascular Rhythm: regular Heart Sounds: Present: S1 & S2 - Extremities Extremities: no ischemia, pulses intact, pulses symmetrical Peripheral Pulses: within normal limits - Abdominal General gastrointestinal: soft, non-tender, non-distended, normal bowel sounds - Integumentary Integumentary: Present: clear, warm - Psychiatric Psychiatric: appropriate mood/affect, cooperative - Neurologic Neurologic: CNII-XII intact, moves all extremities Results - Labs CBC & Chem 7: 12/11/16 10:56 12/11/16 10:56 Labs: Laboratory Last Values WBC 21.5 K/mm3 (4.5-11.0) H 12/11/16 10:56 RBC 5.04 M/mm3 (3.65-5.03) H 12/11/16 10:56 Hgb 13.6 gm/dl (10.1-14.3) 12/11/16 10:56 Hct 40.9 % (30.3-42.9) 12/11/16 10:56 MCV 81 fl (79-97) 12/11/16 10:56 MCH 27 pg (28-32) L 12/11/16 10:56 MCHC 33 % (30-34) 12/11/16 10:56 RDW 14.3 % (13.2-15.2) 12/11/16 10:56 Plt Count 236 K/mm3 (140-440) 12/11/16 10:56 Add Manual Diff Complete 12/11/16 10:56 Total Counted 200 12/11/16 10:56 Seg Neuts % (Manual) 80.0 % (40.0-70.0) H 12/11/16 10:56 Band Neutrophils % 0 % 12/11/16 10:56 Lymphocytes % (Manual) 13.0 % (13.4-35.0) L 12/11/16 10:56 Reactive Lymphs % (Man) 0 % 12/11/16 10:56 Monocytes % (Manual) 7.0 % (0.0-7.3) 12/11/16 10:56 Eosinophils % (Manual) 0 % (0.0-4.3) 12/11/16 10:56 Basophils % (Manual) 0 % (0.0-1.8) 12/11/16 10:56 Metamyelocytes % 0 % 12/11/16 10:56 Myelocytes % 0 % 12/11/16 10:56 Promyelocytes % 0 % 12/11/16 10:56 Blast Cells % 0 % 12/11/16 10:56 Nucleated RBC % Not Reportable 12/11/16 10:56 Seg Neutrophils # Man 17.2 K/mm3 (1.8-7.7) H 12/11/16 10:56 Band Neutrophils # 0.0 K/mm3 12/11/16 10:56 Lymphocytes # (Manual) 2.8 K/mm3 (1.2-5.4) 12/11/16 10:56 Abs React Lymphs (Man) 0.0 K/mm3 12/11/16 10:56 Monocytes # (Manual) 1.5 K/mm3 (0.0-0.8) H 12/11/16 10:56 Eosinophils # (Manual) 0.0 K/mm3 (0.0-0.4) 12/11/16 10:56 Basophils # (Manual) 0.0 K/mm3 (0.0-0.1) 12/11/16 10:56 Metamyelocytes # 0.0 K/mm3 12/11/16 10:56 Myelocytes # 0.0 K/mm3 12/11/16 10:56 Promyelocytes # 0.0 K/mm3 12/11/16 10:56 Blast Cells # 0.0 K/mm3 12/11/16 10:56 WBC Morphology Not Reportable 12/11/16 10:56 Hypersegmented Neuts Not Reportable 12/11/16 10:56 Hyposegmented Neuts Not Reportable 12/11/16 10:56 Hypogranular Neuts Not Reportable 12/11/16 10:56 Smudge Cells Not Reportable 12/11/16 10:56 Toxic Granulation Not Reportable 12/11/16 10:56 Toxic Vacuolation Not Reportable 12/11/16 10:56 Dohle Bodies Not Reportable 12/11/16 10:56 Pelger-Huet Anomaly Not Reportable 12/11/16 10:56 [place] Rods Not Reportable 12/11/16 10:56 Platelet Estimate Consistent w auto 12/11/16 10:56 Clumped Platelets Not Reportable 12/11/16 10:56 Plt Clumps, EDTA Not Reportable 12/11/16 10:56 Large Platelets Not Reportable 12/11/16 10:56 Giant Platelets Not Reportable 12/11/16 10:56 Platelet Satelliting Not Reportable 12/11/16 10:56 Plt Morphology Comment Not Reportable 12/11/16 10:56 RBC Morphology Not Reportable 12/11/16 10:56 Dimorphic RBCs Not Reportable 12/11/16 10:56 Polychromasia Not Reportable 12/11/16 10:56 Hypochromasia Not Reportable 12/11/16 10:56 Poikilocytosis Not Reportable 12/11/16 10:56 Anisocytosis 1+ 12/11/16 10:56 Microcytosis Not Reportable 12/11/16 10:56 Macrocytosis Not Reportable 12/11/16 10:56 Spherocytes Not Reportable 12/11/16 10:56 Pappenheimer Bodies Not Reportable 12/11/16 10:56 Sickle Cells Not Reportable 12/11/16 10:56 Target Cells Not Reportable 12/11/16 10:56 Tear Drop Cells Not Reportable 12/11/16 10:56 Ovalocytes Not Reportable 12/11/16 10:56 Helmet Cells Not Reportable 12/11/16 10:56 [place] Bodies Not Reportable 12/11/16 10:56 [place] Rings Not Reportable 12/11/16 10:56 Estefany Cells Not Reportable 12/11/16 10:56 Bite Cells Not Reportable 12/11/16 10:56 Crenated Cell Not Reportable 12/11/16 10:56 Elliptocytes Not Reportable 12/11/16 10:56 Acanthocytes (Spur) Not Reportable 12/11/16 10:56 Rouleaux Not Reportable 12/11/16 10:56 Hemoglobin C Crystals Not Reportable 12/11/16 10:56 Schistocytes Not Reportable 12/11/16 10:56 Malaria parasites Not Reportable 12/11/16 10:56 Daniel Bodies Not Reportable 12/11/16 10:56 Hem Pathologist Commnt No 12/11/16 10:56 D-Dimer 235.71 ng/mlDDU (0-234) H 12/09/16 20:43 Sodium 129 mmol/L (137-145) L 12/11/16 10:56 Potassium 4.3 mmol/L (3.6-5.0) 12/11/16 10:56 Chloride 90.8 mmol/L (98-107) L 12/11/16 10:56 Carbon Dioxide 24 mmol/L (22-30) 12/11/16 10:56 Anion Gap 19 mmol/L 12/11/16 10:56 BUN 13 mg/dL (7-17) 12/11/16 10:56 Creatinine 0.9 mg/dL (0.7-1.2) 12/11/16 10:56 Estimated GFR > 60 ml/min 12/11/16 10:56 BUN/Creatinine Ratio 14.44 % 12/11/16 10:56 Glucose 380 mg/dL (65-100) H 12/11/16 10:56 Calcium 9.1 mg/dL (8.4-10.2) 12/11/16 10:56 Troponin T < 0.010 ng/mL (0.00-0.029) 12/10/16 14:53
[2016-12-12] MEDS: NITRO-BID 2% TP SCH ×4 (06:22→17:58)
[2016-12-12] MEDS: TYLENOL PO PRN (06:34)
[2016-12-12 09:07] LABS: Hematocrit 41.9 % (30.3-42.9); Hemoglobin 13.8 gm/dl (10.1-14.3); Mean Corpuscular HGB Conc 33 % (30-34); Mean Corpuscular Hemoglobin 28 pg (28-32); Mean Corpuscular Volume 84 fl (79-97); Platelet Count 247 K/mm3 (140-440); Red Blood Count 4.98 M/mm3 (3.65-5.03); Red Cell Distribution Width 14.4 % (13.2-15.2); White Blood Count 12.8 K/mm3 (4.5-11.0)
[2016-12-12] MEDS: ROCEPHIN/NS 1 GM/50 ML 1 GM/50 ML BAG IV SCH (09:15)
[2016-12-12] MEDS: ASPIRIN PO SCH (09:15)
[2016-12-12] MEDS: HEPARIN SUB-Q SCH ×2 (09:16→21:18)
[2016-12-12] MEDS: ZITHROMAX 500 MG in NACL 0.9% 250ML 250 ML IV SCH (09:58)
[2016-12-12 10:07] LABS: Anion Gap 26 mmol/L; BUN/Creatinine Ratio 14.44; Basophils % (Manual) 0 % (0.0-1.8); Blastocytes % (Manual) 0 %; Blood Urea Nitrogen 13 mg/dL (7-17); Calcium 9.1 mg/dL (8.4-10.2); Carbon Dioxide 18 mmol/L (22-30); Eosinophils % (Manual) 0 % (0.0-4.3); Glucose 341 mg/dL (65-100); Sodium 131 mmol/L (137-145)
[2016-12-12 10:08] LABS: Anisocytosis 1+; Diff Status Complete; Platelet Estimate Consistent w Auto
--- NOTE | 2016-12-12 10:54 | Progress Note ---
Assessment and Plan Assessment and plan: --Pneumonia probably community-acquired IV antibiotics, oxygen titrate O2 sats more than 90%, follow cultures, cough medicine, supportive care --Incidental findings of multiple pulmonary nodules and lesions; No symptoms, pulmonary following. Possible CT-guided biopsy --chest pain, Evaluation for acute coronary syndrome Lexiscan stress test negative for reversible ischemia, normal left ventricle function, continue current cardiac medications --Type 2 diabetes mellitus; uncontrolled, Accu-Chek sliding scale coverage, ADA diet, hold metformin in view of the seizures 70/30 insulin as needed --Hyponatremia; replacement therapy, closely monitor levels --Thyroid nodule; CT-guided biopsy tomorrow, nothing by mouth from midnight for the procedure --Leukocytosis secondary to underlying sepsis and pneumonia Trending down, continue antibiotics, supportive care --DVT prophylaxis Lovenox --Full CODE STATUS We will closely monitor the patient and just the management as needed Pulmonary evaluation and recommendations noted and appreciated Plan of care discussed with the patient Hospitalist Physical - Constitutional Vitals: Temp Pulse Resp BP Pulse Ox 97.3 F L 88 18 121/82 98 12/12/16 08:27 12/12/16 10:21 12/12/16 08:27 12/12/16 08:27 12/12/16 10:07 General appearance: Present: no acute distress, well-nourished, obese Results - Labs CBC & Chem 7: 12/12/16 07:52 12/12/16 07:52 Labs: Laboratory Last Values WBC 12.8 K/mm3 (4.5-11.0) H 12/12/16 07:52 RBC 4.98 M/mm3 (3.65-5.03) 12/12/16 07:52 Hgb 13.8 gm/dl (10.1-14.3) 12/12/16 07:52 Hct 41.9 % (30.3-42.9) 12/12/16 07:52 MCV 84 fl (79-97) D 12/12/16 07:52 MCH 28 pg (28-32) 12/12/16 07:52 MCHC 33 % (30-34) 12/12/16 07:52 RDW 14.4 % (13.2-15.2) 12/12/16 07:52 Plt Count 247 K/mm3 (140-440) 12/12/16 07:52 Lymph % (Auto) Web Programmer 12/12/16 07:52 [place] % (Auto) Web Programmer 12/12/16 07:52 Eos % (Auto) Web Programmer 12/12/16 07:52 Baso % (Auto) Web Programmer 12/12/16 07:52 Lymph # Web Programmer 12/12/16 07:52 [place] # Web Programmer 12/12/16 07:52 Eos # Web Programmer 12/12/16 07:52 Baso # Web Programmer 12/12/16 07:52 Add Manual Diff Complete 12/12/16 07:52 Total Counted 100 12/12/16 07:52 Seg Neutrophils % Web Programmer 12/12/16 07:52 Seg Neuts % (Manual) 74.0 % (40.0-70.0) H 12/12/16 07:52 Band Neutrophils % 0 % 12/12/16 07:52 Lymphocytes % (Manual) 19.0 % (13.4-35.0) 12/12/16 07:52 Reactive Lymphs % (Man) 0 % 12/12/16 07:52 Monocytes % (Manual) 7.0 % (0.0-7.3) 12/12/16 07:52 Eosinophils % (Manual) 0 % (0.0-4.3) 12/12/16 07:52 Basophils % (Manual) 0 % (0.0-1.8) 12/12/16 07:52 Metamyelocytes % 0 % 12/12/16 07:52 Myelocytes % 0 % 12/12/16 07:52 Promyelocytes % 0 % 12/12/16 07:52 Blast Cells % 0 % 12/12/16 07:52 Nucleated RBC % Not Reportable 12/12/16 07:52 Seg Neutrophils # Web Programmer 12/12/16 07:52 Seg Neutrophils # Man 9.5 K/mm3 (1.8-7.7) H 12/12/16 07:52 Band Neutrophils # 0.0 K/mm3 12/12/16 07:52 Lymphocytes # (Manual) 2.4 K/mm3 (1.2-5.4) 12/12/16 07:52 Abs React Lymphs (Man) 0.0 K/mm3 12/12/16 07:52 Monocytes # (Manual) 0.9 K/mm3 (0.0-0.8) H 12/12/16 07:52 Eosinophils # (Manual) 0.0 K/mm3 (0.0-0.4) 12/12/16 07:52 Basophils # (Manual) 0.0 K/mm3 (0.0-0.1) 12/12/16 07:52 Metamyelocytes # 0.0 K/mm3 12/12/16 07:52 Myelocytes # 0.0 K/mm3 12/12/16 07:52 Promyelocytes # 0.0 K/mm3 12/12/16 07:52 Blast Cells # 0.0 K/mm3 12/12/16 07:52 WBC Morphology Not Reportable 12/12/16 07:52 Hypersegmented Neuts Not Reportable 12/12/16 07:52 Hyposegmented Neuts Not Reportable 12/12/16 07:52 Hypogranular Neuts Not Reportable 12/12/16 07:52 Smudge Cells Not Reportable 12/12/16 07:52 Toxic Granulation Not Reportable 12/12/16 07:52 Toxic Vacuolation Not Reportable 12/12/16 07:52 Dohle Bodies Not Reportable 12/12/16 07:52 Pelger-Huet Anomaly Not Reportable 12/12/16 07:52 [place] Rods Not Reportable 12/12/16 07:52 Platelet Estimate Consistent w auto 12/12/16 07:52 Clumped Platelets Not Reportable 12/12/16 07:52 Plt Clumps, EDTA Not Reportable 12/12/16 07:52 Large Platelets Not Reportable 12/12/16 07:52 Giant Platelets Not Reportable 12/12/16 07:52 Platelet Satelliting Not Reportable 12/12/16 07:52 Plt Morphology Comment Not Reportable 12/12/16 07:52 RBC Morphology Not Reportable 12/12/16 07:52 Dimorphic RBCs Not Reportable 12/12/16 07:52 Polychromasia Not Reportable 12/12/16 07:52 Hypochromasia Not Reportable 12/12/16 07:52 Poikilocytosis Not Reportable 12/12/16 07:52 Anisocytosis 1+ 12/12/16 07:52 Microcytosis Not Reportable 12/12/16 07:52 Macrocytosis Not Reportable 12/12/16 07:52 Spherocytes Not Reportable 12/12/16 07:52 Pappenheimer Bodies Not Reportable 12/12/16 07:52 Sickle Cells Not Reportable 12/12/16 07:52 Target Cells Not Reportable 12/12/16 07:52 Tear Drop Cells Not Reportable 12/12/16 07:52 Ovalocytes Not Reportable 12/12/16 07:52 Helmet Cells Not Reportable 12/12/16 07:52 [place] Bodies Not Reportable 12/12/16 07:52 [place] Rings Not Reportable 12/12/16 07:52 [place] Cells Not Reportable 12/12/16 07:52 Bite Cells Not Reportable 12/12/16 07:52 Crenated Cell Not Reportable 12/12/16 07:52 Elliptocytes Not Reportable 12/12/16 07:52 Acanthocytes (Spur) Not Reportable 12/12/16 07:52 Rouleaux Not Reportable 12/12/16 07:52 Hemoglobin C Crystals Not Reportable 12/12/16 07:52 Schistocytes Not Reportable 12/12/16 07:52 Malaria parasites Not Reportable 12/12/16 07:52 Daniel Bodies Not Reportable 12/12/16 07:52 Hem Pathologist Commnt No 12/12/16 07:52 D-Dimer 235.71 ng/mlDDU (0-234) H 12/09/16 20:43 Sodium 131 mmol/L (137-145) L 12/12/16 07:52 Potassium 5.0 mmol/L (3.6-5.0) 12/12/16 07:52 Chloride 92.0 mmol/L (98-107) L 12/12/16 07:52 Carbon Dioxide 18 mmol/L (22-30) L 12/12/16 07:52 Anion Gap 26 mmol/L 12/12/16 07:52 BUN 13 mg/dL (7-17) 12/12/16 07:52 Creatinine 0.9 mg/dL (0.7-1.2) 12/12/16 07:52 Estimated GFR > 60 ml/min 12/12/16 07:52 BUN/Creatinine Ratio 14.44 % 12/12/16 07:52 Glucose 341 mg/dL (65-100) H 12/12/16 07:52 Calcium 9.1 mg/dL (8.4-10.2) 12/12/16 07:52 Magnesium 2.30 mg/dL (1.7-2.3) 12/12/16 07:52 Troponin T < 0.010 ng/mL (0.00-0.029) 12/10/16 14:53 TSH 1.540 mlU/mL (0.270-4.200) 12/11/16 18:33
--- NOTE | 2016-12-12 17:42 | Progress Note ---
Subjective Date of service: 12/12/16 Principal diagnosis: Abnormal CT chest Interval history: Seen and examined at bedside; 24 hour events reviewed; nursing and respiratory care staff consulted; no adverse overnight events reported to me; Objective Vital Signs - 12hr 12/12/16 12/12/16 12/12/16 08:27 10:07 10:21 Temperature 97.3 F L Pulse Rate 88 Pulse Rate [ 87 Apical] Pulse Rate [ 87 Left Dorsalis Pedis] Pulse Rate [ 87 Left Radial] Pulse Rate [ 87 Right Dorsalis Pedis] Pulse Rate [ 87 Right Radial] Respiratory 18 Rate Blood Pressure 121/82 [Right Arm] O2 Sat by Pulse 95 98 Oximetry 12/12/16 12/12/16 10:59 16:46 Temperature 98.0 F Pulse Rate Pulse Rate [ 87 85 Apical] Pulse Rate [ 85 Left Dorsalis Pedis] Pulse Rate [ 85 Left Radial] Pulse Rate [ 85 Right Dorsalis Pedis] Pulse Rate [ 85 Right Radial] Respiratory 18 20 Rate Blood Pressure 167/88 [Right Arm] O2 Sat by Pulse 95 97 Oximetry CBC and BMP: 12/12/16 07:52 12/12/16 07:52 ABG, PT/INR, D-dimer: PT/INR, D-dimer D-Dimer 235.71 ng/mlDDU (0-234) H 12/09/16 20:43 Abnormal lab findings: Abnormal Labs 12/11/16 12/11/16 12/12/16 10:56 10:56 07:52 WBC 21.5 H 12.8 H RBC 5.04 H MCH 27 L Seg Neuts % (Manual) 80.0 H 74.0 H Lymphocytes % (Manual) 13.0 L Seg Neutrophils # Man 17.2 H 9.5 H Monocytes # (Manual) 1.5 H 0.9 H Sodium 129 L Chloride 90.8 L Carbon Dioxide Glucose 380 H 12/12/16 07:52 WBC RBC MCH Seg Neuts % (Manual) Lymphocytes % (Manual) Seg Neutrophils # Man Monocytes # (Manual) Sodium 131 L Chloride 92.0 L Carbon Dioxide 18 L Glucose 341 H
[2016-12-12] MEDS: NOVOLOG SUB-Q SCH (21:19)
[2016-12-13] MEDS: NITRO-BID 2% TP SCH ×4 (05:33→18:06)
[2016-12-13] MEDS: TYLENOL PO PRN (05:42)
--- NOTE | 2016-12-13 07:51 | Progress Note ---
Assessment and Plan Assessment and plan: --Thyroid nodule; CT-guided biopsy today, --Positive blood cultures, continue IV antibiotics, follow sensitivities, repeat one set of blood cultures --Pneumonia probably community-acquired IV antibiotics, oxygen titrate O2 sats more than 90%, follow cultures, cough medicine, supportive care --Incidental findings of multiple pulmonary nodules and lesions; No symptoms, pulmonary following. Possible CT-guided biopsy --chest pain, Evaluation for acute coronary syndrome Lexiscan stress test negative for reversible ischemia, normal left ventricle function, continue current cardiac medications --Type 2 diabetes mellitus; uncontrolled, Accu-Chek sliding scale coverage, ADA diet, hold metformin in view of the seizures 70/30 insulin as needed --Hyponatremia; corrected --Leukocytosis secondary to underlying sepsis and pneumonia Trending down, continue antibiotics, supportive care --DVT prophylaxis Lovenox --Full CODE STATUS We will closely monitor the patient and adjust the management as needed Plan of care discussed with the patient History Interval history: patient and evaluated in her room this morning medical records reviewed No new events reported by nursing staff Patient scheduled for CT-guided biopsy of thyroid nodule Awake oriented 3 not in acute distress vital signs stable Hospitalist Physical - Constitutional Vitals: Temp Pulse Resp BP Pulse Ox 98.5 F 94 H 20 155/92 95 12/13/16 07:19 12/13/16 07:19 12/13/16 07:19 12/13/16 07:19 12/12/16 20:09 General appearance: Present: no acute distress, well-nourished, obese - EENT Eyes: Present: PERRL, EOM intact - Neck Neck: Present: supple, normal ROM - Respiratory Respiratory effort: normal Respiratory: bilateral: diminished, negative: rales, rhonchi, wheezing - Cardiovascular Rhythm: regular Heart Sounds: Present: S1 & S2 - Extremities Extremities: no ischemia, pulses intact, pulses symmetrical - Abdominal General gastrointestinal: soft, non-tender, non-distended, normal bowel sounds - Integumentary Integumentary: Present: clear, warm - Psychiatric Psychiatric: appropriate mood/affect, cooperative - Neurologic Neurologic: CNII-XII intact, moves all extremities Results - Labs CBC & Chem 7: 12/13/16 07:01 12/13/16 07:01 Labs: Laboratory Last Values WBC 12.8 K/mm3 (4.5-11.0) H 12/12/16 07:52 RBC 4.98 M/mm3 (3.65-5.03) 12/12/16 07:52 Hgb 13.8 gm/dl (10.1-14.3) 12/12/16 07:52 Hct 41.9 % (30.3-42.9) 12/12/16 07:52 MCV 84 fl (79-97) D 12/12/16 07:52 MCH 28 pg (28-32) 12/12/16 07:52 MCHC 33 % (30-34) 12/12/16 07:52 RDW 14.4 % (13.2-15.2) 12/12/16 07:52 Plt Count 247 K/mm3 (140-440) 12/12/16 07:52 Lymph % (Auto) Contact [place] Buffer 12/12/16 07:52 [place] % (Auto) Contact [place] Buffer 12/12/16 07:52 Eos % (Auto) Contact [place] Buffer 12/12/16 07:52 Baso % (Auto) Contact [place] Buffer 12/12/16 07:52 Lymph # Contact [place] Buffer 12/12/16 07:52 [place] # Contact [place] Buffer 12/12/16 07:52 Eos # Contact [place] Buffer 12/12/16 07:52 Baso # Contact [place] Buffer 12/12/16 07:52 Add Manual Diff Complete 12/12/16 07:52 Total Counted 100 12/12/16 07:52 Seg Neutrophils % Contact [place] Buffer 12/12/16 07:52 Seg Neuts % (Manual) 74.0 % (40.0-70.0) H 12/12/16 07:52 Band Neutrophils % 0 % 12/12/16 07:52 Lymphocytes % (Manual) 19.0 % (13.4-35.0) 12/12/16 07:52 Reactive Lymphs % (Man) 0 % 12/12/16 07:52 Monocytes % (Manual) 7.0 % (0.0-7.3) 12/12/16 07:52 Eosinophils % (Manual) 0 % (0.0-4.3) 12/12/16 07:52 Basophils % (Manual) 0 % (0.0-1.8) 12/12/16 07:52 Metamyelocytes % 0 % 12/12/16 07:52 Myelocytes % 0 % 12/12/16 07:52 Promyelocytes % 0 % 12/12/16 07:52 Blast Cells % 0 % 12/12/16 07:52 Nucleated RBC % Not Reportable 12/12/16 07:52 Seg Neutrophils # Contact [place] Buffer 12/12/16 07:52 Seg Neutrophils # Man 9.5 K/mm3 (1.8-7.7) H 12/12/16 07:52 Band Neutrophils # 0.0 K/mm3 12/12/16 07:52 Lymphocytes # (Manual) 2.4 K/mm3 (1.2-5.4) 12/12/16 07:52 Abs React Lymphs (Man) 0.0 K/mm3 12/12/16 07:52 Monocytes # (Manual) 0.9 K/mm3 (0.0-0.8) H 12/12/16 07:52 Eosinophils # (Manual) 0.0 K/mm3 (0.0-0.4) 12/12/16 07:52 Basophils # (Manual) 0.0 K/mm3 (0.0-0.1) 12/12/16 07:52 Metamyelocytes # 0.0 K/mm3 12/12/16 07:52 Myelocytes # 0.0 K/mm3 12/12/16 07:52 Promyelocytes # 0.0 K/mm3 12/12/16 07:52 Blast Cells # 0.0 K/mm3 12/12/16 07:52 WBC Morphology Not Reportable 12/12/16 07:52 Hypersegmented Neuts Not Reportable 12/12/16 07:52 Hyposegmented Neuts Not Reportable 12/12/16 07:52 Hypogranular Neuts Not Reportable 12/12/16 07:52 Smudge Cells Not Reportable 12/12/16 07:52 Toxic Granulation Not Reportable 12/12/16 07:52 Toxic Vacuolation Not Reportable 12/12/16 07:52 Dohle Bodies Not Reportable 12/12/16 07:52 [place] Anomaly Not Reportable 12/12/16 07:52 [place] Rods Not Reportable 12/12/16 07:52 Platelet Estimate Consistent w auto 12/12/16 07:52 Clumped Platelets Not Reportable 12/12/16 07:52 Plt Clumps, EDTA Not Reportable 12/12/16 07:52 Large Platelets Not Reportable 12/12/16 07:52 Giant Platelets Not Reportable 12/12/16 07:52 Platelet Satelliting Not Reportable 12/12/16 07:52 Plt Morphology Comment Not Reportable 12/12/16 07:52 RBC Morphology Not Reportable 12/12/16 07:52 Dimorphic RBCs Not Reportable 12/12/16 07:52 Polychromasia Not Reportable 12/12/16 07:52 Hypochromasia Not Reportable 12/12/16 07:52 Poikilocytosis Not Reportable 12/12/16 07:52 Anisocytosis 1+ 12/12/16 07:52 Microcytosis Not Reportable 12/12/16 07:52 Macrocytosis Not Reportable 12/12/16 07:52 Spherocytes Not Reportable 12/12/16 07:52 Pappenheimer Bodies Not Reportable 12/12/16 07:52 Sickle Cells Not Reportable 12/12/16 07:52 Target Cells Not Reportable 12/12/16 07:52 Tear Drop Cells Not Reportable 12/12/16 07:52 Ovalocytes Not Reportable 12/12/16 07:52 Helmet Cells Not Reportable 12/12/16 07:52 [place] Bodies Not Reportable 12/12/16 07:52 [place] Rings Not Reportable 12/12/16 07:52 Estefany Cells Not Reportable 12/12/16 07:52 Bite Cells Not Reportable 12/12/16 07:52 Crenated Cell Not Reportable 12/12/16 07:52 Elliptocytes Not Reportable 12/12/16 07:52 Acanthocytes (Spur) Not Reportable 12/12/16 07:52 Rouleaux Not Reportable 12/12/16 07:52 Hemoglobin C Crystals Not Reportable 12/12/16 07:52 Schistocytes Not Reportable 12/12/16 07:52 Malaria parasites Not Reportable 12/12/16 07:52 Daniel Bodies Not Reportable 12/12/16 07:52 Hem Pathologist Commnt No 12/12/16 07:52 D-Dimer 235.71 ng/mlDDU (0-234) H 12/09/16 20:43 Sodium 131 mmol/L (137-145) L 12/12/16 07:52 Potassium 5.0 mmol/L (3.6-5.0) 12/12/16 07:52 Chloride 92.0 mmol/L (98-107) L 12/12/16 07:52 Carbon Dioxide 18 mmol/L (22-30) L 12/12/16 07:52 Anion Gap 26 mmol/L 12/12/16 07:52 BUN 13 mg/dL (7-17) 12/12/16 07:52 Creatinine 0.9 mg/dL (0.7-1.2) 12/12/16 07:52 Estimated GFR > 60 ml/min 12/12/16 07:52 BUN/Creatinine Ratio 14.44 % 12/12/16 07:52 Glucose 341 mg/dL (65-100) H 12/12/16 07:52 POC Glucose 169 (70-105) H 12/13/16 05:48 Calcium 9.1 mg/dL (8.4-10.2) 12/12/16 07:52 Magnesium 2.30 mg/dL (1.7-2.3) 12/12/16 07:52 Troponin T < 0.010 ng/mL (0.00-0.029) 12/10/16 14:53 TSH 1.540 mlU/mL (0.270-4.200) 12/11/16 18:33
[2016-12-13 08:02] LABS: Basophils % (Auto) 0.5 % (0.0-1.8); Eosinophils % (Auto) 1.9 % (0.0-4.3); Hematocrit 40.4 % (30.3-42.9); Hemoglobin 13.4 gm/dl (10.1-14.3); Mean Corpuscular HGB Conc 33 % (30-34); Mean Corpuscular Hemoglobin 27 pg (28-32); Mean Corpuscular Volume 81 fl (79-97); Platelet Count 275 K/mm3 (140-440); Red Blood Count 5.01 M/mm3 (3.65-5.03); Red Cell Distribution Width 14.3 % (13.2-15.2); White Blood Count 12.6 K/mm3 (4.5-11.0)
[2016-12-13 08:21] LABS: BUN/Creatinine Ratio 11.25; Blood Urea Nitrogen 9 mg/dL (7-17); Calcium 9.2 mg/dL (8.4-10.2); Carbon Dioxide 25 mmol/L (22-30); Chloride 99.6 mmol/L (98-107); Glucose 174 mg/dL (65-100); Potassium 4.1 mmol/L (3.6-5.0); Sodium 140 mmol/L (137-145)
[2016-12-13 08:22] LABS: Anion Gap 20 mmol/L
[2016-12-13] MEDS: NOVOLOG SUB-Q SCH ×4 (08:36→21:50)
[2016-12-13] MEDS: ZITHROMAX 500 MG in NACL 0.9% 250ML 250 ML IV SCH (10:00)
--- NOTE | 2016-12-13 11:09 | Ultrasound Report ---
ULTRASOUND THYROID SCAN History: Multinodular goiter Findings: The thyroid gland is enlarged and heterogeneous with multiple nodules consistent with multinodular goiter. The right lobe measures 6.0 x 2.2 x 2.9 cm. The left lobe measures 8.9 x 3.5 x 3.0 cm. There are approximately 5 nodules in the right lobe measuring up to 1.8 cm. There are approximately 7 nodules in the left thyroid lobe measuring up to 2.2 cm. An isthmus nodule measures 1.2 cm. All nodules appear relatively isoechoic to thyroid parenchyma. No microcalcifications, cystic change or increased flow on color Doppler. Correlation with recent CT chest is consistent with a multinodular goiter with substernal component. Impression: Enlarged thyroid gland with multiple nodules consistent with a multinodular goiter. No suspicious nodule warranting biopsy is appreciated. Consider surveillance or comparison to previous exams if they are available.
[2016-12-13] MEDS: HEPARIN SUB-Q SCH ×2 (12:23→21:54)
[2016-12-13] MEDS: ROCEPHIN/NS 1 GM/50 ML 1 GM/50 ML BAG IV SCH (12:24)
[2016-12-13] MEDS: ASPIRIN PO SCH (12:24)
[2016-12-13] MEDS ORDERED: PROVENTIL IH PRN (19:00)
--- NOTE | 2016-12-13 21:12 | Progress Note ---
Assessment and Plan Patient resting on room air. Patient says shortness of breath and cough much better.O2 saturation 100% - Patient Problems (1) Chest pain Current Visit: Yes Status: Acute Qualifiers: Chest pain type: unspecified Ischemic chest pain type: I Plan to address problem: Chest pain improved. (2) Pneumonia Current Visit: Yes Status: Acute Qualifiers: Pneumonia type: due to unspecified organism Aspiration pneumonia type: A Laterality: left Lung location: upper lobe of lung Qualified Code(s): J18.1 - Lobar pneumonia, unspecified organism Plan to address problem: Patient is on ceftrioxone and zithromax. (3) Pulmonary nodules/lesions, multiple Current Visit: Yes Status: Acute Plan to address problem: Reticulonodular patteren reported on CAT scan of chest. Obtaining JORGE ALBERTO level, TERESA,Rheumataoid factor and CANCA. Subjective Date of service: 12/13/16 Principal diagnosis: Abnormal CT chest Interval history: Patient resting on room air. Patient says shortness of breath and cough much better.O2 saturation 100% Objective Vital Signs - 12hr 12/13/16 12/13/16 16:25 20:51 Pulse Rate [ 80 Right Radial] Respiratory 20 Rate O2 Sat by Pulse 100 Oximetry Constitutional: no acute distress Eyes: non-icteric Neck: supple, no lymphadenopathy Ascultation: Bilateral: rhonchi (Occassional ronchi) Cardiovascular: regular rate and rhythm Gastrointestinal: normoactive bowel sounds, soft, non-tender Integumentary: normal Extremities: no cyanosis, no edema Neurologic: normal mental status, non-focal exam, pupils equal and round, CN II- XII normal Psychiatric: mood appropriate CBC and BMP: 12/13/16 07:01 12/13/16 07:01 ABG, PT/INR, D-dimer: PT/INR, D-dimer D-Dimer 235.71 ng/mlDDU (0-234) H 12/09/16 20:43 Abnormal lab findings: Abnormal Labs 12/11/16 12/11/16 12/12/16 10:56 10:56 07:52 WBC 21.5 H 12.8 H RBC 5.04 H MCH 27 L [place] % (Auto) [place] # Seg Neuts % (Manual) 80.0 H 74.0 H Lymphocytes % (Manual) 13.0 L Seg Neutrophils # Man 17.2 H 9.5 H Monocytes # (Manual) 1.5 H 0.9 H Sodium 129 L Chloride 90.8 L Carbon Dioxide Glucose 380 H POC Glucose 12/12/16 12/12/16 12/13/16 07:52 21:10 05:48 WBC RBC MCH [place] % (Auto) [place] # Seg Neuts % (Manual) Lymphocytes % (Manual) Seg Neutrophils # Man Monocytes # (Manual) Sodium 131 L Chloride 92.0 L Carbon Dioxide 18 L Glucose 341 H POC Glucose 358 H 169 H 12/13/16 12/13/16 12/13/16 07:01 07:01 11:49 WBC 12.6 H RBC MCH 27 L [place] % (Auto) 9.2 H [place] # 1.2 H Seg Neuts % (Manual) Lymphocytes % (Manual) Seg Neutrophils # Man Monocytes # (Manual) Sodium Chloride Carbon Dioxide Glucose 174 H POC Glucose 217 H 12/13/16 12/13/16 16:30 20:50 WBC RBC MCH [place] % (Auto) [place] # Seg Neuts % (Manual) Lymphocytes % (Manual) Seg Neutrophils # Man Monocytes # (Manual) Sodium Chloride Carbon Dioxide Glucose POC Glucose 384 H 112 H Chest x-ray: report reviewed (Minimal lung base atelectasis.) CT scan - chest: report reviewed (No PE. Pulmonary emphysema with interstitial changes.)
[2016-12-14] MEDS: NITRO-BID 2% TP SCH ×4 (06:44→17:36)
[2016-12-14] MEDS: NOVOLOG SUB-Q SCH ×4 (07:30→22:08)
[2016-12-14] MEDS: ROCEPHIN/NS 1 GM/50 ML 1 GM/50 ML BAG IV SCH (09:02)
[2016-12-14] MEDS: HEPARIN SUB-Q SCH ×2 (09:02→22:11)
[2016-12-14] MEDS: ZITHROMAX PO SCH (09:03)
[2016-12-14] MEDS: ASPIRIN PO SCH (09:03)
[2016-12-14 12:40] LABS: ISTAT Base Excess 2; ISTAT DEVICE 0; ISTAT HCO3 26.1; ISTAT PCO2 39.9 (35-45); ISTAT PH 7.423 (7.35-7.45); ISTAT PO2 69 (80-105); ISTAT SO2 94; ISTAT TCO2 27
--- NOTE | 2016-12-14 15:29 | Progress Note ---
Assessment and Plan Assessment and plan: --Left-sided pneumonia[patchy infiltrate left upper lobe] community-acquired Empiric IV antibiotics, oxygen titrated to O2 sats more than 90%, pulmonary following --Incidental multiple lung nodules on CT angiogram of the chest, Pulmonary following, possible CT-guided biopsy and inpatient versus outpatient Possible vasculitis, workup is in progress --Thyroid nodule; multinodular goiter, no indication for biopsy at this point, closely monitor --Positive blood cultures, nonspecific , continue empiric antibiotic , consult ID if needed --chest pain, Evaluation for acute coronary syndrome Lexiscan stress test negative for reversible ischemia, normal left ventricle function, continue current cardiac medications --Type 2 diabetes mellitus; uncontrolled, Accu-Chek sliding scale coverage, ADA diet, hold metformin in view of the seizures 70/30 insulin as needed --Hyponatremia; corrected --Leukocytosis secondary to underlying sepsis and pneumonia Trending down, continue antibiotics, supportive care --DVT prophylaxis Lovenox --Full CODE STATUS We will closely monitor the patient and adjust the management as needed Plan of care discussed with the patient History Interval history: Patient seen and evaluated medical records reviewed No new events reported by the nursing staff Hospitalist Physical - Constitutional Vitals: Temp Pulse Resp BP Pulse Ox 97 F L 82 18 154/90 97 12/14/16 07:30 12/14/16 07:30 12/14/16 07:30 12/14/16 07:30 12/14/16 07:30 General appearance: Present: no acute distress, well-nourished, obese Results - Labs CBC & Chem 7: 12/13/16 07:01 12/13/16 07:01 Labs: Laboratory Last Values WBC 12.6 K/mm3 (4.5-11.0) H 12/13/16 07:01 RBC 5.01 M/mm3 (3.65-5.03) 12/13/16 07:01 Hgb 13.4 gm/dl (10.1-14.3) 12/13/16 07:01 Hct 40.4 % (30.3-42.9) 12/13/16 07:01 MCV 81 fl (79-97) D 12/13/16 07:01 MCH 27 pg (28-32) L 12/13/16 07:01 MCHC 33 % (30-34) 12/13/16 07:01 RDW 14.3 % (13.2-15.2) 12/13/16 07:01 Plt Count 275 K/mm3 (140-440) 12/13/16 07:01 Lymph % (Auto) 27.7 % (13.4-35.0) 12/13/16 07:01 [place] % (Auto) 9.2 % (0.0-7.3) H 12/13/16 07:01 Eos % (Auto) 1.9 % (0.0-4.3) 12/13/16 07:01 Baso % (Auto) 0.5 % (0.0-1.8) 12/13/16 07:01 Lymph # 3.5 K/mm3 (1.2-5.4) 12/13/16 07:01 [place] # 1.2 K/mm3 (0.0-0.8) H 12/13/16 07:01 Eos # 0.2 K/mm3 (0.0-0.4) 12/13/16 07:01 Baso # 0.1 K/mm3 (0.0-0.1) 12/13/16 07:01 Add Manual Diff Complete 12/12/16 07:52 Total Counted 100 12/12/16 07:52 Seg Neutrophils % 60.7 % (40.0-70.0) 12/13/16 07:01 Seg Neuts % (Manual) 74.0 % (40.0-70.0) H 12/12/16 07:52 Band Neutrophils % 0 % 12/12/16 07:52 Lymphocytes % (Manual) 19.0 % (13.4-35.0) 12/12/16 07:52 Reactive Lymphs % (Man) 0 % 12/12/16 07:52 Monocytes % (Manual) 7.0 % (0.0-7.3) 12/12/16 07:52 Eosinophils % (Manual) 0 % (0.0-4.3) 12/12/16 07:52 Basophils % (Manual) 0 % (0.0-1.8) 12/12/16 07:52 Metamyelocytes % 0 % 12/12/16 07:52 Myelocytes % 0 % 12/12/16 07:52 Promyelocytes % 0 % 12/12/16 07:52 Blast Cells % 0 % 12/12/16 07:52 Nucleated RBC % Not Reportable 12/12/16 07:52 Seg Neutrophils # 7.7 K/mm3 (1.8-7.7) 12/13/16 07:01 Seg Neutrophils # Man 9.5 K/mm3 (1.8-7.7) H 12/12/16 07:52 Band Neutrophils # 0.0 K/mm3 12/12/16 07:52 Lymphocytes # (Manual) 2.4 K/mm3 (1.2-5.4) 12/12/16 07:52 Abs React Lymphs (Man) 0.0 K/mm3 12/12/16 07:52 Monocytes # (Manual) 0.9 K/mm3 (0.0-0.8) H 12/12/16 07:52 Eosinophils # (Manual) 0.0 K/mm3 (0.0-0.4) 12/12/16 07:52 Basophils # (Manual) 0.0 K/mm3 (0.0-0.1) 12/12/16 07:52 Metamyelocytes # 0.0 K/mm3 12/12/16 07:52 Myelocytes # 0.0 K/mm3 12/12/16 07:52 Promyelocytes # 0.0 K/mm3 12/12/16 07:52 Blast Cells # 0.0 K/mm3 12/12/16 07:52 WBC Morphology Not Reportable 12/12/16 07:52 Hypersegmented Neuts Not Reportable 12/12/16 07:52 Hyposegmented Neuts Not Reportable 12/12/16 07:52 Hypogranular Neuts Not Reportable 12/12/16 07:52 Smudge Cells Not Reportable 12/12/16 07:52 Toxic Granulation Not Reportable 12/12/16 07:52 Toxic Vacuolation Not Reportable 12/12/16 07:52 Dohle Bodies Not Reportable 12/12/16 07:52 Pelger-Huet Anomaly Not Reportable 12/12/16 07:52 [place] Rods Not Reportable 12/12/16 07:52 Platelet Estimate Consistent w auto 12/12/16 07:52 Clumped Platelets Not Reportable 12/12/16 07:52 Plt Clumps, EDTA Not Reportable 12/12/16 07:52 Large Platelets Not Reportable 12/12/16 07:52 Giant Platelets Not Reportable 12/12/16 07:52 Platelet Satelliting Not Reportable 12/12/16 07:52 Plt Morphology Comment Not Reportable 12/12/16 07:52 RBC Morphology Not Reportable 12/12/16 07:52 Dimorphic RBCs Not Reportable 12/12/16 07:52 Polychromasia Not Reportable 12/12/16 07:52 Hypochromasia Not Reportable 12/12/16 07:52 Poikilocytosis Not Reportable 12/12/16 07:52 Anisocytosis 1+ 12/12/16 07:52 Microcytosis Not Reportable 12/12/16 07:52 Macrocytosis Not Reportable 12/12/16 07:52 Spherocytes Not Reportable 12/12/16 07:52 Pappenheimer Bodies Not Reportable 12/12/16 07:52 Sickle Cells Not Reportable 12/12/16 07:52 Target Cells Not Reportable 12/12/16 07:52 Tear Drop Cells Not Reportable 12/12/16 07:52 Ovalocytes Not Reportable 12/12/16 07:52 Helmet Cells Not Reportable 12/12/16 07:[address] [place] Bodies Not Reportable 12/12/16 07:52 [place] Rings Not Reportable 12/12/16 07:52 Estefany Cells Not Reportable 12/12/16 07:52 Bite Cells Not Reportable 12/12/16 07:52 Crenated Cell Not Reportable 12/12/16 07:52 Elliptocytes Not Reportable 12/12/16 07:52 Acanthocytes (Spur) Not Reportable 12/12/16 07:52 Rouleaux Not Reportable 12/12/16 07:52 Hemoglobin C Crystals Not Reportable 12/12/16 07:52 Schistocytes Not Reportable 12/12/16 07:52 Malaria parasites Not Reportable 12/12/16 07:52 Daniel Bodies Not Reportable 12/12/16 07:52 Hem Pathologist Commnt No 12/12/16 07:52 D-Dimer 235.71 ng/mlDDU (0-234) H 12/09/16 20:43 POC ABG pH 7.423 (7.35-7.45) 12/14/16 12:15 POC ABG pCO2 39.9 (35-45) 12/14/16 12:15 POC ABG pO2 69 (80-105) L 12/14/16 12:15 POC ABG HCO3 26.1 12/14/16 12:15 POC ABG Total CO2 27 12/14/16 12:15 POC ABG O2 Sat 94 12/14/16 12:15 POC ABG Base Excess 2 12/14/16 12:15 FiO2 21 % 12/14/16 12:15 Sodium 140 mmol/L (137-145) D 12/13/16 07:01 Potassium 4.1 mmol/L (3.6-5.0) 12/13/16 07:01 Chloride 99.6 mmol/L (98-107) 12/13/16 07:01 Carbon Dioxide 25 mmol/L (22-30) D 12/13/16 07:01 Anion Gap 20 mmol/L 12/13/16 07:01 BUN 9 mg/dL (7-17) 12/13/16 07:01 Creatinine 0.8 mg/dL (0.7-1.2) 12/13/16 07:01 Estimated GFR > 60 ml/min 12/13/16 07:01 BUN/Creatinine Ratio 11.25 % 12/13/16 07:01 Glucose 174 mg/dL (65-100) H 12/13/16 07:01 POC Glucose 236 (70-105) H 12/14/16 06:21 Calcium 9.2 mg/dL (8.4-10.2) 12/13/16 07:01 Magnesium 2.30 mg/dL (1.7-2.3) 12/12/16 07:52 Troponin T < 0.010 ng/mL (0.00-0.029) 12/10/16 14:53 TSH 1.540 mlU/mL (0.270-4.200) 12/11/16 18:33 Rheumatoid Factor < 10 IU/ml (0-13) 12/13/16 21:56
[2016-12-14] MEDS: TYLENOL PO PRN ×2 (16:22→22:07)
--- NOTE | 2016-12-14 19:43 | Progress Note ---
Assessment and Plan Patient resting on room air. Patient says shortness of breath and cough much better.O2 saturation 97%. Complaing left sided chest pain at times. - Patient Problems (1) Chest pain Current Visit: Yes Status: Acute Qualifiers: Chest pain type: unspecified Ischemic chest pain type: I Qualified Code(s ): R07.9 - Chest pain, unspecified Plan to address problem: Left sided Chest pain at times. Management as per primary care and cardiology. (2) Pneumonia Current Visit: Yes Status: Acute Qualifiers: Pneumonia type: due to unspecified organism Aspiration pneumonia type: A Laterality: left Lung location: upper lobe of lung Qualified Code(s): J18.1 - Lobar pneumonia, unspecified organism Plan to address problem: Patient is on ceftrioxone and zithromax. (3) Pulmonary nodules/lesions, multiple Current Visit: Yes Status: Acute Plan to address problem: Reticulonodular patteren reported on CAT scan of chest. Obtaining JORGE ALBERTO level, TERESA,Rheumataoid factor and CANCA. Results are still pending. Subjective Date of service: 12/14/16 Principal diagnosis: Abnormal CT chest Interval history: Patient resting on room air. Patient says shortness of breath and cough much better.O2 saturation 97%. Left sided chest pain at times. Objective Vital Signs - 12hr 12/14/16 16:00 Temperature 98.1 F Pulse Rate [ 94 H Right Radial] Respiratory 18 Rate Blood Pressure 136/88 [Right Arm] Constitutional: no acute distress Eyes: non-icteric Neck: supple, no lymphadenopathy Ascultation: Bilateral: rhonchi (Occassional ronchi) Cardiovascular: regular rate and rhythm Gastrointestinal: normoactive bowel sounds, soft, non-tender Integumentary: normal Extremities: no cyanosis, no edema Neurologic: normal mental status, non-focal exam, pupils equal and round, CN II- XII normal Psychiatric: mood appropriate CBC and BMP: 12/13/16 07:01 12/13/16 07:01 ABG, PT/INR, D-dimer: ABG POC ABG pH 7.423 (7.35-7.45) 12/14/16 12:15 POC ABG pCO2 39.9 (35-45) 12/14/16 12:15 POC ABG pO2 69 (80-105) L 12/14/16 12:15 POC ABG HCO3 26.1 12/14/16 12:15 POC ABG Total CO2 27 12/14/16 12:15 POC ABG O2 Sat 94 12/14/16 12:15 PT/INR, D-dimer D-Dimer 235.71 ng/mlDDU (0-234) H 12/09/16 20:43 Abnormal lab findings: Abnormal Labs 12/11/16 12/11/16 12/12/16 10:56 10:56 07:52 WBC 21.5 H 12.8 H RBC 5.04 H MCH 27 L [place] % (Auto) [place] # Seg Neuts % (Manual) 80.0 H 74.0 H Lymphocytes % (Manual) 13.0 L Seg Neutrophils # Man 17.2 H 9.5 H Monocytes # (Manual) 1.5 H 0.9 H POC ABG pO2 Sodium 129 L Chloride 90.8 L Carbon Dioxide Glucose 380 H POC Glucose Hemoglobin A1c 12/12/16 12/12/16 12/13/16 07:52 21:10 05:48 WBC RBC MCH [place] % (Auto) [place] # Seg Neuts % (Manual) Lymphocytes % (Manual) Seg Neutrophils # Man Monocytes # (Manual) POC ABG pO2 Sodium 131 L Chloride 92.0 L Carbon Dioxide 18 L Glucose 341 H POC Glucose 358 H 169 H Hemoglobin A1c 12/13/16 12/13/16 12/13/16 07:01 07:01 11:49 WBC 12.6 H RBC MCH 27 L [place] % (Auto) 9.2 H [place] # 1.2 H Seg Neuts % (Manual) Lymphocytes % (Manual) Seg Neutrophils # Man Monocytes # (Manual) POC ABG pO2 Sodium Chloride Carbon Dioxide Glucose 174 H POC Glucose 217 H Hemoglobin A1c 12/13/16 12/13/16 12/14/16 16:30 20:50 06:21 WBC RBC MCH [place] % (Auto) [place] # Seg Neuts % (Manual) Lymphocytes % (Manual) Seg Neutrophils # Man Monocytes # (Manual) POC ABG pO2 Sodium Chloride Carbon Dioxide Glucose POC Glucose 384 H 112 H 236 H Hemoglobin A1c 12/14/16 12/14/16 12/14/16 11:10 12:15 16:12 WBC RBC MCH [place] % (Auto) [place] # Seg Neuts % (Manual) Lymphocytes % (Manual) Seg Neutrophils # Man Monocytes # (Manual) POC ABG pO2 69 L Sodium Chloride Carbon Dioxide Glucose POC Glucose 239 H 213 H Hemoglobin A1c 12/14/16 16:42 WBC RBC MCH [place] % (Auto) [place] # Seg Neuts % (Manual) Lymphocytes % (Manual) Seg Neutrophils # Man Monocytes # (Manual) POC ABG pO2 Sodium Chloride Carbon Dioxide Glucose POC Glucose Hemoglobin A1c 9.1 H
[2016-12-15] MEDS ORDERED: APRESOLINE IV PRN (00:13)
[2016-12-15 05:45] LABS: Anion Gap 19 mmol/L; BUN/Creatinine Ratio 15.71; Blood Urea Nitrogen 11 mg/dL (7-17); Calcium 9.4 mg/dL (8.4-10.2); Carbon Dioxide 23 mmol/L (22-30); Glucose 190 mg/dL (65-100); Sodium 137 mmol/L (137-145)
[2016-12-15] MEDS: NITRO-BID 2% TP SCH ×4 (07:23→17:27)
--- NOTE | 2016-12-15 08:21 | Consultation ---
History of Present Illness - Reason for Consult Consult date: 12/15/16 Pneumonia/ Positive Blood Cultures Requesting physician: SHERITA ZAPIEN - History of Present Illness Ms. Nolan is a 61-year-old woman with emphysema who is admitted for evaluation of substernal chest pain associated with productive cough, shortness of breath and fatigue. She says the cough is now improved with antibiotics, but denies having fever or chills. She was hypoxemic with a pO2 69. A chest radiograph showed possible atelectasis. CTA chest showed no evidence of PE, but a questionable EDWINA infiltrative process along with an enlarged thyroid gland with multiple masses and mediastinal/ pretracheal lymph node enlargement. An thyroid ultrasound confirms a multinodular goiter. She has been treated with Rocephin and Azithrmycin for possible pneumonia. Blood cultures obtained are positive for coagulase-negative Staph in 1 of 4 bottles and group D Strep in another 1 of 4 bottles. She has remained afebrile with stable vitals throughout the admission. ID consultation is requested for further treatment recommendations of possible pneumonia and bacteremia. Past History Past Medical History: arthritis, diabetes, hypertension, other (FIBROMYALGIA) Past Surgical History: bowel surgery Social history: other (SMOKES MARIJUANA) Medications and Allergies Allergies Allergy/AdvReac Type Severity Reaction Status Date / Time No Known Allergies Allergy Verified 12/09/16 20:01 Home Medications Medication Instructions Recorded Confirmed Last Taken Type Gabapentin 25 mg PO TID 12/10/16 12/10/16 Unknown History Glucophage 500 mg PO BID 12/10/16 12/10/16 2 Days Ago History Active Meds: Active Medications Acetaminophen (Tylenol) 650 mg PO Q4H PRN PRN Reason: For Pain/Fever/Headache Last Admin: 12/14/16 22:07 Dose: 650 mg Albuterol (Proventil) 2.5 mg IH Q4HRT PRN PRN Reason: Shortness Of Breath Aspirin (Aspirin) 325 mg PO QDAY [facility] Last Admin: 12/14/16 09:03 Dose: 325 mg Azithromycin (Zithromax) 500 mg PO QDAY [facility] Last Admin: 12/14/16 09:03 Dose: 500 mg Heparin Sodium (Porcine) (Heparin) 5,000 unit SUB-Q Q12HR [facility] Last Admin: 12/14/16 22:11 Dose: 5,000 unit Hydralazine HCl (Apresoline) 20 mg IV Q6H PRN PRN Reason: Blood Pressure Last Admin: 12/15/16 00:44 Dose: 20 mg Ceftriaxone Sodium (Rocephin/Ns 1 Gm/50 Ml) 1 gm in 50 mls @ 100 mls/hr IV Q24HR JESSI PRN Reason: Protocol Last Admin: 12/14/16 09:02 Dose: 100 mls/hr Insulin Aspart (Novolog) 0 units SUB-Q ACHS JESSI PRN Reason: Protocol Last Admin: 12/14/16 22:08 Dose: 3 units Nitroglycerin (Nitro-Bid 2%) 0.5 inch TP QIDNTG JESSI PRN Reason: Protocol Last Admin: 12/15/16 07:23 Dose: 0.5 inch Ondansetron HCl (Zofran) 4 mg IV Q6H PRN PRN Reason: Nausea And Vomiting Last Admin: 12/10/16 02:21 Dose: 4 mg Review of Systems All systems: negative Constitutional: weakness, no fever, no chills Ears, nose, mouth and throat: no nasal congestion, no nasal discharge, no sore throat, no headache Cardiovascular: chest pain, shortness of breath, no palpitations Respiratory: cough with sputum, no hemoptysis Gastrointestinal: no abdominal pain, no nausea, no vomiting, no diarrhea Integumentary: no rash, no pruritis Hematologic/Lymphatic: no lymphadenopathy Physical Examination - Constitutional Vitals: Vital Signs Temp Pulse Resp BP Pulse Ox 98.1 F 95 H 18 118/71 97 12/14/16 16:00 12/15/16 07:23 12/14/16 16:00 12/15/16 07:23 12/14/16 07:30 Temperature -Last 24 Hours Temperature 98.1 F General appearance: Present: no acute distress, obese - EENT ENT: poor dentition, no thrush - Neck Neck: Present: supple, enlarged thyroid - Respiratory Respiratory effort: normal Respiratory: bilateral: diminished, negative: rales - Cardiovascular Rhythm: regular Heart Sounds: Present: S1 & S2 - Extremities Extremities: No edema - Abdominal General gastrointestinal: Present: soft, non-tender, non-distended - Integumentary Integumentary: Present: clear. Absent: rash - Psychiatric Psychiatric: appropriate mood/affect - Neurologic Neurologic: no focal deficits Results - Labs CBC & Chem 7: 12/13/16 07:01 12/15/16 04:43 Labs: Abnormal lab results 12/14/16 12/14/16 12/14/16 Range/Units 11:10 12:15 16:12 POC ABG pO2 69 L (80-105) Glucose (65-100) mg/dL POC Glucose 239 H 213 H (70-105) Hemoglobin A1c (4-6) % 12/14/16 12/14/16 12/15/16 Range/Units 16:42 21:22 04:43 POC ABG pO2 (80-105) Glucose 190 H (65-100) mg/dL POC Glucose 212 H (70-105) Hemoglobin A1c 9.1 H (4-6) % 12/15/16 Range/Units 05:25 POC ABG pO2 (80-105) Glucose (65-100) mg/dL POC Glucose 181 H (70-105) Hemoglobin A1c (4-6) % Microbiology 12/13/16 16:45 Peripheral/Venous Blood Culture - Preliminary NO GROWTH AFTER 24 HOURS 12/13/16 17:40 Peripheral/Venous Blood Culture - Preliminary NO GROWTH AFTER 24 HOURS 12/09/16 22:07 Peripheral/Venous Blood Culture - Final Streptococcus Not Group D 12/09/16 21:29 Peripheral/Venous Blood Culture - Final Coag Negative Staphylococcus - Imaging and Cardiology Chest x-ray: report reviewed CT scan - chest: report reviewed Assessment and Plan - Patient Problems (1) Positive blood culture Current Visit: Yes Status: Acute Plan to address problem: 1. I do not believe the positive blood cultures reflect bacteremia, but specimen contamination. 2. Will continue antibiotics to complete an empiric course for community- acquired pneumonia only. 3. Will continue to follow results of repeat blood cultures. (2) Pneumonia Current Visit: Yes Status: Acute Qualifiers: Pneumonia type: due to unspecified organism Aspiration pneumonia type: A Laterality: left Lung location: upper lobe of lung Qualified Code(s): J18.1 - Lobar pneumonia, unspecified organism Plan to address problem: 1. Completing course of Azithromycin/ Rocephin for CAP. 2. If limited resolution, will send sputum studies.
[2016-12-15] MEDS: NOVOLOG SUB-Q SCH ×4 (08:35→22:46)
[2016-12-15] MEDS: TYLENOL PO PRN ×2 (08:40→21:40)
[2016-12-15] MEDS: HEPARIN SUB-Q SCH ×2 (09:51→21:41)
[2016-12-15] MEDS: ZITHROMAX PO SCH (09:52)
[2016-12-15] MEDS: ASPIRIN PO SCH (09:53)
[2016-12-15] MEDS: ROCEPHIN/NS 1 GM/50 ML 1 GM/50 ML BAG IV SCH (09:53)
--- NOTE | 2016-12-15 13:58 | Progress Note ---
Assessment and Plan Assessment and plan: --Left-sided pneumonia[patchy infiltrate left upper lobe] community-acquired Symptoms significantly improved ,Empiric IV antibiotics, oxygen titrate O2 sats to more than 90%, pulmonary following --Incidental multiple lung nodules on CT angiogram of the chest, Pulmonary following, Possible vasculitis, workup is in progress, can have the rest of the workup as outpatient --Thyroid nodule; multinodular goiter, no indication for biopsy at this point, closely monitor --Positive blood cultures, nonspecific , continue empiric antibiotic , ID evaluation noted and appreciated Repeat cultures negative to date --chest pain, Evaluation for acute coronary syndrome Lexiscan stress test negative for reversible ischemia, normal left ventricle function, continue current cardiac medications --Type 2 diabetes mellitus; uncontrolled, Accu-Chek sliding scale coverage, ADA diet, hold metformin in view of the seizures 70/30 insulin as needed --Hyponatremia; corrected --Leukocytosis secondary to underlying sepsis and pneumonia Trending down, continue antibiotics, supportive care --DVT prophylaxis Lovenox --Full CODE STATUS We will closely monitor the patient and adjust the management as needed Plan of care discussed with the patient as well as the nurse Disposition; follow ID recommendations, discharge in 1-2 days of oral antibiotic if cleared Follow-up with pulmonary and ID for further evaluation and management as outpatient History Interval history: Patient seen and evaluated in her room this morning medical records reviewed No new events reported by the nursing staff Patient complains of mild intermittent headache, denies nausea or vomiting or abdominal pain Alert awake oriented 3 not in acute distress vital signs stable, Hospitalist Physical - Constitutional Vitals: Temp Pulse Resp BP Pulse Ox 98.4 F 93 H 20 118/71 95 12/15/16 08:00 12/15/16 08:00 12/15/16 08:00 12/15/16 08:00 12/15/16 08:00 General appearance: Present: no acute distress, well-nourished, obese - EENT Eyes: Present: PERRL, EOM intact - Neck Neck: Present: supple, normal ROM - Respiratory Respiratory effort: normal Respiratory: bilateral: diminished, negative: rales, rhonchi, wheezing - Cardiovascular Rhythm: regular Heart Sounds: Present: S1 & S2 - Extremities Extremities: no ischemia, No edema Peripheral Pulses: within normal limits - Abdominal General gastrointestinal: soft, non-tender, non-distended, normal bowel sounds - Integumentary Integumentary: Present: clear, warm - Psychiatric Psychiatric: appropriate mood/affect, cooperative - Neurologic Neurologic: CNII-XII intact, moves all extremities Results - Labs CBC & Chem 7: 12/13/16 07:01 12/15/16 04:43 Labs: Laboratory Last Values WBC 12.6 K/mm3 (4.5-11.0) H 12/13/16 07:01 RBC 5.01 M/mm3 (3.65-5.03) 12/13/16 07:01 Hgb 13.4 gm/dl (10.1-14.3) 12/13/16 07:01 Hct 40.4 % (30.3-42.9) 12/13/16 07:01 MCV 81 fl (79-97) D 12/13/16 07:01 MCH 27 pg (28-32) L 12/13/16 07:01 MCHC 33 % (30-34) 12/13/16 07:01 RDW 14.3 % (13.2-15.2) 12/13/16 07:01 Plt Count 275 K/mm3 (140-440) 12/13/16 07:01 Lymph % (Auto) 27.7 % (13.4-35.0) 12/13/16 07:01 [place] % (Auto) 9.2 % (0.0-7.3) H 12/13/16 07:01 Eos % (Auto) 1.9 % (0.0-4.3) 12/13/16 07:01 Baso % (Auto) 0.5 % (0.0-1.8) 12/13/16 07:01 Lymph # 3.5 K/mm3 (1.2-5.4) 12/13/16 07:01 [place] # 1.2 K/mm3 (0.0-0.8) H 12/13/16 07:01 Eos # 0.2 K/mm3 (0.0-0.4) 12/13/16 07:01 Baso # 0.1 K/mm3 (0.0-0.1) 12/13/16 07:01 Add Manual Diff Complete 12/12/16 07:52 Total Counted 100 12/12/16 07:52 Seg Neutrophils % 60.7 % (40.0-70.0) 12/13/16 07:01 Seg Neuts % (Manual) 74.0 % (40.0-70.0) H 12/12/16 07:52 Band Neutrophils % 0 % 12/12/16 07:52 Lymphocytes % (Manual) 19.0 % (13.4-35.0) 12/12/16 07:52 Reactive Lymphs % (Man) 0 % 12/12/16 07:52 Monocytes % (Manual) 7.0 % (0.0-7.3) 12/12/16 07:52 Eosinophils % (Manual) 0 % (0.0-4.3) 12/12/16 07:52 Basophils % (Manual) 0 % (0.0-1.8) 12/12/16 07:52 Metamyelocytes % 0 % 12/12/16 07:52 Myelocytes % 0 % 12/12/16 07:52 Promyelocytes % 0 % 12/12/16 07:52 Blast Cells % 0 % 12/12/16 07:52 Nucleated RBC % Not Reportable 12/12/16 07:52 Seg Neutrophils # 7.7 K/mm3 (1.8-7.7) 12/13/16 07:01 Seg Neutrophils # Man 9.5 K/mm3 (1.8-7.7) H 12/12/16 07:52 Band Neutrophils # 0.0 K/mm3 12/12/16 07:52 Lymphocytes # (Manual) 2.4 K/mm3 (1.2-5.4) 12/12/16 07:52 Abs React Lymphs (Man) 0.0 K/mm3 12/12/16 07:52 Monocytes # (Manual) 0.9 K/mm3 (0.0-0.8) H 12/12/16 07:52 Eosinophils # (Manual) 0.0 K/mm3 (0.0-0.4) 12/12/16 07:52 Basophils # (Manual) 0.0 K/mm3 (0.0-0.1) 12/12/16 07:52 Metamyelocytes # 0.0 K/mm3 12/12/16 07:52 Myelocytes # 0.0 K/mm3 12/12/16 07:52 Promyelocytes # 0.0 K/mm3 12/12/16 07:52 Blast Cells # 0.0 K/mm3 12/12/16 07:52 WBC Morphology Not Reportable 12/12/16 07:52 Hypersegmented Neuts Not Reportable 12/12/16 07:52 Hyposegmented Neuts Not Reportable 12/12/16 07:52 Hypogranular Neuts Not Reportable 12/12/16 07:52 Smudge Cells Not Reportable 12/12/16 07:52 Toxic Granulation Not Reportable 12/12/16 07:52 Toxic Vacuolation Not Reportable 12/12/16 07:52 Dohle Bodies Not Reportable 12/12/16 07:52 Pelger-Huet Anomaly Not Reportable 12/12/16 07:52 [place] Rods Not Reportable 12/12/16 07:52 Platelet Estimate Consistent w auto 12/12/16 07:52 Clumped Platelets Not Reportable 12/12/16 07:52 Plt Clumps, EDTA Not Reportable 12/12/16 07:52 Large Platelets Not Reportable 12/12/16 07:52 Giant Platelets Not Reportable 12/12/16 07:52 Platelet Satelliting Not Reportable 12/12/16 07:52 Plt Morphology Comment Not Reportable 12/12/16 07:52 RBC Morphology Not Reportable 12/12/16 07:52 Dimorphic RBCs Not Reportable 12/12/16 07:52 Polychromasia Not Reportable 12/12/16 07:52 Hypochromasia Not Reportable 12/12/16 07:52 Poikilocytosis Not Reportable 12/12/16 07:52 Anisocytosis 1+ 12/12/16 07:52 Microcytosis Not Reportable 12/12/16 07:52 Macrocytosis Not Reportable 12/12/16 07:52 Spherocytes Not Reportable 12/12/16 07:52 Pappenheimer Bodies Not Reportable 12/12/16 07:52 Sickle Cells Not Reportable 12/12/16 07:52 Target Cells Not Reportable 12/12/16 07:52 Tear Drop Cells Not Reportable 12/12/16 07:52 Ovalocytes Not Reportable 12/12/16 07:52 Helmet Cells Not Reportable 12/12/16 07:52 Mckee-Arimo Bodies Not Reportable 12/12/16 07:52 Madelia Rings Not Reportable 12/12/16 07:52 Estefany Cells Not Reportable 12/12/16 07:52 Bite Cells Not Reportable 12/12/16 07:52 Crenated Cell Not Reportable 12/12/16 07:52 Elliptocytes Not Reportable 12/12/16 07:52 Acanthocytes (Spur) Not Reportable 12/12/16 07:52 Rouleaux Not Reportable 12/12/16 07:52 Hemoglobin C Crystals Not Reportable 12/12/16 07:52 Schistocytes Not Reportable 12/12/16 07:52 Malaria parasites Not Reportable 12/12/16 07:52 Daniel Bodies Not Reportable 12/12/16 07:52 Hem Pathologist Commnt No 12/12/16 07:52 D-Dimer 235.71 ng/mlDDU (0-234) H 12/09/16 20:43 POC ABG pH 7.423 (7.35-7.45) 12/14/16 12:15 POC ABG pCO2 39.9 (35-45) 12/14/16 12:15 POC ABG pO2 69 (80-105) L 12/14/16 12:15 POC ABG HCO3 26.1 12/14/16 12:15 POC ABG Total CO2 27 12/14/16 12:15 POC ABG O2 Sat 94 12/14/16 12:15 POC ABG Base Excess 2 12/14/16 12:15 FiO2 21 % 12/14/16 12:15 Sodium 137 mmol/L (137-145) 12/15/16 04:43 Potassium 4.0 mmol/L (3.6-5.0) 12/15/16 04:43 Chloride 99.0 mmol/L (98-107) 12/15/16 04:43 Carbon Dioxide 23 mmol/L (22-30) 12/15/16 04:43 Anion Gap 19 mmol/L 12/15/16 04:43 BUN 11 mg/dL (7-17) 12/15/16 04:43 Creatinine 0.7 mg/dL (0.7-1.2) 12/15/16 04:43 Estimated GFR > 60 ml/min 12/15/16 04:43 BUN/Creatinine Ratio 15.71 % 12/15/16 04:43 Glucose 190 mg/dL (65-100) H 12/15/16 04:43 POC Glucose 293 (70-105) H 12/15/16 11:56 Hemoglobin A1c 9.1 % (4-6) H 12/14/16 16:42 Calcium 9.4 mg/dL (8.4-10.2) 12/15/16 04:43 Magnesium 2.30 mg/dL (1.7-2.3) 12/12/16 07:52 Troponin T < 0.010 ng/mL (0.00-0.029) 12/10/16 14:53 TSH 1.540 mlU/mL (0.270-4.200) 12/11/16 18:33 Rheumatoid Factor < 10 IU/ml (0-13) 12/13/16 21:56
[2016-12-15 18:34] LABS: Myeloperoxidase Antibody <1.0 AI (<1.0)
--- NOTE | 2016-12-15 23:01 | Progress Note ---
Assessment and Plan Patient alert, awake. No complaint of chest pain or shortness of breath today.O2 saturation 100% on room air. Rheumatoid factor result came back which is negative. - Patient Problems (1) Chest pain Current Visit: Yes Status: Acute Qualifiers: Chest pain type: unspecified Ischemic chest pain type: I Qualified Code(s ): R07.9 - Chest pain, unspecified Plan to address problem: Left sided Chest pain at times. Management as per primary care and cardiology. (2) Pneumonia Current Visit: Yes Status: Acute Qualifiers: Pneumonia type: due to unspecified organism Aspiration pneumonia type: A Laterality: left Lung location: upper lobe of lung Qualified Code(s): J18.1 - Lobar pneumonia, unspecified organism Plan to address problem: Patient is on ceftrioxone and zithromax. (3) Pulmonary nodules/lesions, multiple Current Visit: Yes Status: Acute Plan to address problem: Reticulonodular patteren reported on CAT scan of chest. Ordered JORGE ALBERTO level, TEREAS,Rheumataoid factor and CANCA. Only rheumatoid factor level came back which is normal Rest of the results pending. Subjective Date of service: 12/15/16 Principal diagnosis: Abnormal CT chest Interval history: Patient alert, awake. No complaint of chest pain or shortness of breath today.O2 saturation 100% on room air. Rheumatoid factor result came back which is negative. Objective Vital Signs - 12hr 12/15/16 12/15/16 16:00 21:40 Temperature 97.9 F Pulse Rate [ 95 H Right Radial] Respiratory 20 20 Rate Blood Pressure 117/63 [Right Arm] O2 Sat by Pulse 100 Oximetry Constitutional: no acute distress, alert Eyes: non-icteric Neck: supple, no lymphadenopathy Ascultation: Bilateral: rhonchi (Occassional ronchi) Cardiovascular: regular rate and rhythm Gastrointestinal: normoactive bowel sounds, soft, non-tender Integumentary: normal Extremities: no cyanosis, no edema Neurologic: normal mental status, non-focal exam, pupils equal and round, CN II- XII normal Psychiatric: mood appropriate CBC and BMP: 12/13/16 07:01 12/15/16 04:43 ABG, PT/INR, D-dimer: ABG POC ABG pH 7.423 (7.35-7.45) 12/14/16 12:15 POC ABG pCO2 39.9 (35-45) 12/14/16 12:15 POC ABG pO2 69 (80-105) L 12/14/16 12:15 POC ABG HCO3 26.1 12/14/16 12:15 POC ABG Total CO2 27 12/14/16 12:15 POC ABG O2 Sat 94 12/14/16 12:15 PT/INR, D-dimer D-Dimer 235.71 ng/mlDDU (0-234) H 12/09/16 20:43 Abnormal lab findings: Abnormal Labs 12/11/16 12/11/16 12/12/16 10:56 10:56 07:52 WBC 21.5 H 12.8 H RBC 5.04 H MCH 27 L [place] % (Auto) [place] # Seg Neuts % (Manual) 80.0 H 74.0 H Lymphocytes % (Manual) 13.0 L Seg Neutrophils # Man 17.2 H 9.5 H Monocytes # (Manual) 1.5 H 0.9 H POC ABG pO2 Sodium 129 L Chloride 90.8 L Carbon Dioxide Glucose 380 H POC Glucose Hemoglobin A1c 12/12/16 12/12/16 12/13/16 07:52 21:10 05:48 WBC RBC MCH [place] % (Auto) [place] # Seg Neuts % (Manual) Lymphocytes % (Manual) Seg Neutrophils # Man Monocytes # (Manual) POC ABG pO2 Sodium 131 L Chloride 92.0 L Carbon Dioxide 18 L Glucose 341 H POC Glucose 358 H 169 H Hemoglobin A1c 12/13/16 12/13/16 12/13/16 07:01 07:01 11:49 WBC 12.6 H RBC MCH 27 L [place] % (Auto) 9.2 H [place] # 1.2 H Seg Neuts % (Manual) Lymphocytes % (Manual) Seg Neutrophils # Man Monocytes # (Manual) POC ABG pO2 Sodium Chloride Carbon Dioxide Glucose 174 H POC Glucose 217 H Hemoglobin A1c 12/13/16 12/13/16 12/14/16 16:30 20:50 06:21 WBC RBC MCH [place] % (Auto) [place] # Seg Neuts % (Manual) Lymphocytes % (Manual) Seg Neutrophils # Man Monocytes # (Manual) POC ABG pO2 Sodium Chloride Carbon Dioxide Glucose POC Glucose 384 H 112 H 236 H Hemoglobin A1c 12/14/16 12/14/16 12/14/16 11:10 12:15 16:12 WBC RBC MCH [place] % (Auto) [place] # Seg Neuts % (Manual) Lymphocytes % (Manual) Seg Neutrophils # Man Monocytes # (Manual) POC ABG pO2 69 L Sodium Chloride Carbon Dioxide Glucose POC Glucose 239 H 213 H Hemoglobin A1c 12/14/16 12/14/16 12/15/16 16:42 21:22 04:43 WBC RBC MCH [place] % (Auto) [place] # Seg Neuts % (Manual) Lymphocytes % (Manual) Seg Neutrophils # Man Monocytes # (Manual) POC ABG pO2 Sodium Chloride Carbon Dioxide Glucose 190 H POC Glucose 212 H Hemoglobin A1c 9.1 H 12/15/16 12/15/16 12/15/16 05:25 11:56 17:19 WBC RBC MCH [place] % (Auto) [place] # Seg Neuts % (Manual) Lymphocytes % (Manual) Seg Neutrophils # Man Monocytes # (Manual) POC ABG pO2 Sodium Chloride Carbon Dioxide Glucose POC Glucose 181 H 293 H 212 H Hemoglobin A1c 12/15/16 21:07 WBC RBC MCH [place] % (Auto) [place] # Seg Neuts % (Manual) Lymphocytes % (Manual) Seg Neutrophils # Man Monocytes # (Manual) POC ABG pO2 Sodium Chloride Carbon Dioxide Glucose POC Glucose 250 H Hemoglobin A1c
[2016-12-16] MEDS: NITRO-BID 2% TP SCH ×3 (06:15→17:28)
[2016-12-16] MEDS: NOVOLOG SUB-Q SCH ×3 (08:59→17:27)
[2016-12-16] MEDS: ROCEPHIN/NS 1 GM/50 ML 1 GM/50 ML BAG IV SCH (08:59)
[2016-12-16] MEDS: ASPIRIN PO SCH (08:59)
[2016-12-16] MEDS: ZITHROMAX PO SCH (08:59)
[2016-12-16] MEDS: HEPARIN SUB-Q SCH (09:00)
--- NOTE | 2016-12-16 10:28 | Progress Note ---
Assessment and Plan - Patient Problems (1) Pulmonary nodules/lesions, multiple Status: Acute Plan to address problem: Follow up serologies previously ordered. Will need outpatient pulmonary follow up and follow up imaging. If the infitrates are persistent will need bronchoscopy for definitive diagnosis (2) Pneumonia Status: Acute Qualifiers: Pneumonia type: due to unspecified organism Aspiration pneumonia type: A Laterality: left Lung location: upper lobe of lung Qualified Code(s): J18.1 - Lobar pneumonia, unspecified organism Plan to address problem: Complete appropriate antibiotics for CAP (3) Chest pain Status: Acute Qualifiers: Chest pain type: unspecified Ischemic chest pain type: I Qualified Code(s ): R07.9 - Chest pain, unspecified Plan to address problem: Resolved (4) Marijuana abuse Status: Acute Plan to address problem: Substance abuse counselling done at the bedside. She verbalized understanding and all her questions were answered Subjective Date of service: 12/16/16 Principal diagnosis: Abnormal CT chest Interval history: Seen and examined. Vitals, lbs, medications, labs and chart reviewed. she states that overnight she could not sleep, had a headache-she took off the nitroglycerin patch. Her headaches improved and she was able to get to sleep. On further questioning- she does not smoke cigarettes but smokes marajuana, which she says she uses for her fibromyalgia and chronic pain syndrome. She denies any shortness of breath. No fevers or chest pain. Cough is much better. Resting comfortably, in no respiratory distress, on room air. Objective Vital Signs - 12hr 12/15/16 12/16/16 12/16/16 23:00 06:15 07:00 Temperature 98.5 F 97.7 F Pulse Rate 84 Pulse Rate [ 91 H Right Radial] Respiratory 16 20 Rate Blood Pressure 129/84 Blood Pressure 133/77 126/86 [Right Arm] O2 Sat by Pulse 98 95 Oximetry Constitutional: no acute distress, alert Eyes: non-icteric ENT: oropharynx moist Neck: supple, no lymphadenopathy, no JVD Ascultation: Bilateral: diminished breath sounds, rhonchi (Occassional ronchi) Cardiovascular: regular rate and rhythm Gastrointestinal: normoactive bowel sounds, soft, non-tender, non-distended Integumentary: normal Extremities: no cyanosis, no edema, pulses normal, no ischemia or petechiae Neurologic: normal mental status, non-focal exam, pupils equal and round, CN II- XII normal, motor strength normal and Psychiatric: mood appropriate, affect normal CBC and BMP: 12/13/16 07:01 12/15/16 04:43 ABG, PT/INR, D-dimer: ABG POC ABG pH 7.423 (7.35-7.45) 12/14/16 12:15 POC ABG pCO2 39.9 (35-45) 12/14/16 12:15 POC ABG pO2 69 (80-105) L 12/14/16 12:15 POC ABG HCO3 26.1 12/14/16 12:15 POC ABG Total CO2 27 12/14/16 12:15 POC ABG O2 Sat 94 12/14/16 12:15 PT/INR, D-dimer D-Dimer 235.71 ng/mlDDU (0-234) H 12/09/16 20:43 Abnormal lab findings: Abnormal Labs 12/11/16 12/11/16 12/12/16 10:56 10:56 07:52 WBC 21.5 H 12.8 H RBC 5.04 H MCH 27 L [place] % (Auto) [place] # Seg Neuts % (Manual) 80.0 H 74.0 H Lymphocytes % (Manual) 13.0 L Seg Neutrophils # Man 17.2 H 9.5 H Monocytes # (Manual) 1.5 H 0.9 H POC ABG pO2 Sodium 129 L Chloride 90.8 L Carbon Dioxide Glucose 380 H POC Glucose Hemoglobin A1c 12/12/16 12/12/16 12/13/16 07:52 21:10 05:48 WBC RBC MCH [place] % (Auto) [place] # Seg Neuts % (Manual) Lymphocytes % (Manual) Seg Neutrophils # Man Monocytes # (Manual) POC ABG pO2 Sodium 131 L Chloride 92.0 L Carbon Dioxide 18 L Glucose 341 H POC Glucose 358 H 169 H Hemoglobin A1c 12/13/16 12/13/16 12/13/16 07:01 07:01 11:49 WBC 12.6 H RBC MCH 27 L [place] % (Auto) 9.2 H [place] # 1.2 H Seg Neuts % (Manual) Lymphocytes % (Manual) Seg Neutrophils # Man Monocytes # (Manual) POC ABG pO2 Sodium Chloride Carbon Dioxide Glucose 174 H POC Glucose 217 H Hemoglobin A1c 0712/13/16 12/14/16 16:30 20:50 06:21 WBC RBC MCH [place] % (Auto) [place] # Seg Neuts % (Manual) Lymphocytes % (Manual) Seg Neutrophils # Man Monocytes # (Manual) POC ABG pO2 Sodium Chloride Carbon Dioxide Glucose POC Glucose 384 H 112 H 236 H Hemoglobin A1c 12/14/16 12/14/16 12/14/16 11:10 12:15 16:12 WBC RBC MCH [place] % (Auto) [place] # Seg Neuts % (Manual) Lymphocytes % (Manual) Seg Neutrophils # Man Monocytes # (Manual) POC ABG pO2 69 L Sodium Chloride Carbon Dioxide Glucose POC Glucose 239 H 213 H Hemoglobin A1c 12/14/16 12/14/16 12/15/16 16:42 21:22 04:43 WBC RBC MCH [place] % (Auto) [place] # Seg Neuts % (Manual) Lymphocytes % (Manual) Seg Neutrophils # Man Monocytes # (Manual) POC ABG pO2 Sodium Chloride Carbon Dioxide Glucose 190 H POC Glucose 212 H Hemoglobin A1c 9.1 H 12/15/16 12/15/16 12/15/16 05:25 11:56 17:19 WBC RBC MCH [place] % (Auto) [place] # Seg Neuts % (Manual) Lymphocytes % (Manual) Seg Neutrophils # Man Monocytes # (Manual) POC ABG pO2 Sodium Chloride Carbon Dioxide Glucose POC Glucose 181 H 293 H 212 H Hemoglobin A1c 12/15/16 12/16/16 21:07 06:20 WBC RBC MCH [place] % (Auto) [place] # Seg Neuts % (Manual) Lymphocytes % (Manual) Seg Neutrophils # Man Monocytes # (Manual) POC ABG pO2 Sodium Chloride Carbon Dioxide Glucose POC Glucose 250 H 153 H Hemoglobin A1c
--- NOTE | 2016-12-16 10:40 | Discharge Summary ---
Providers - Providers Date of Admission: 12/10/16 00:46 Date of discharge: 12/16/16 Attending physician: SHERITA ZAPIEN 12/10/16 06:54 Consult to Physician [CONS] Routine Consulting Provider: LYLA JACOBS Reason For Exam: MULTIPLE PULM. NODULES WITH FAMILY HIS. OF LUNG CA Place consult to:: LYLA GALLEGOS Notified:: A SERVICE Phone number called:: [phone] Was contact made?: Yes If yes, spoke with:: SHILPA Time called:: 08:44 12/14/16 15:34 Consult to Physician [CONS] Routine Consulting Provider: NERY MONTENEGRO Reason For Exam: pneumonia/positive blood cultures Place consult to:: DR. MONTENEGRO Notified:: DR. MONTENEGRO CELL Phone number called:: [phone] Was contact made?: No If yes, spoke with:: LEFT MESSAGE ON CELL Time called:: 16:35 Comment:: JUSTIN NOTIFIED Primary care physician: GEOPHYSICAL DRAFTER Hospitalization Reason for admission: left-sided chest pain/shortness of breath and cough Condition: Stable Pertinent studies: Chest x-ray; shallow inspiration with minimal lung basically ectasis CTA chest; No evidence of PE, pulmonary emphysema, electrical pattern with patchy areas of critical low nodular change scattered nodules and hazy nodules metastatic disease is a diagnosis of exclusion underlying malignancy is not excludable, patchy air space infiltrate left upper lobe nonspecific, enlarged thyroid gland , underlying thyroid malignancy Thyroid ultrasound; enlarged thyroid gland with multiple nodules consistent with multinodular goitersuspicious nodule warranting biopsy is appreciated surveillance of comparison to previous exam if Available Stress test; normal myocardial perfusion scan without evidence of reversible ischemia and normal left ventricular systolic function Hospital course: 61-year-old female patient was admitted through emergency room with the left- sided chest pain and shortness of breath and cough of 2 days' duration She was admitted to the hospital symptomatically managed, evaluated by pulmonology and ID and received following management With significant improvement of symptoms. Final diagnosis: 1.Chest pain; stress test negative for reversible ischemia, normal ejection fraction 2,Community-acquired pneumonia; empiric antibiotics with Rocephin and Zithromax , discharge on Levaquin 3.Positive blood cultures; ID evaluated the patient, possible contamination , repeat blood cultures negative to date 4.Thyroid goiter; stable, further evaluation as outpatient 5. Pulmonary nodules; workup is in progress, further evaluation as outpatient 6.Type 2 diabetes mellitus; Accu-Chek sliding scale coverage and ADA diet and insulin 7.Hyponatremia; corrected The patient is comfortable in bed alert awake oriented 3 not in acute distress Vital signs reviewed stable, [id number] evaluation physical examination done by me. Discharge is unremarkable as detailed below Patient is hemodynamically and clinically stable for discharge and did not need any further acute inpatient care at this time Disposition: DC-01 TO HOME OR SELFCARE Time spent for discharge: 32 min Core Measure Documentation - Palliative Care Palliative Care/ Comfort Measures: Not Applicable - Core Measures Any of the following diagnoses?: none Exam - Constitutional Vitals: Temp Pulse Resp BP Pulse Ox 97.7 F 84 20 126/86 95 12/16/16 07:00 12/16/16 06:15 12/16/16 07:00 12/16/16 07:00 12/16/16 07:00 General appearance: Present: no acute distress, well-nourished - EENT Eyes: Present: PERRL, EOM intact - Neck Neck: Present: supple, normal ROM - Respiratory Respiratory effort: normal Respiratory: bilateral: diminished, negative: rales, rhonchi, wheezing - Cardiovascular Rhythm: regular Heart Sounds: Present: S1 & S2 - Extremities Extremities: no ischemia, pulses intact, No edema Peripheral Pulses: within normal limits - Abdominal General gastrointestinal: Present: soft, non-tender, non-distended, normal bowel sounds - Integumentary Integumentary: Present: clear, warm - Musculoskeletal Musculoskeletal: strength equal bilaterally, generalized weakness - Psychiatric Psychiatric: appropriate mood/affect, cooperative - Neurologic Neurologic: CNII-XII intact, moves all extremities Plan Activity: no restrictions Diet: low salt, diabetic Additional Instructions: Outpatient surgical evaluation of thyroid nodule Follow up with: PRIMARY CARE, [Primary Care Provider] - 3-5 Days NERY MONTENEGRO MD [Staff Physician] - 7 Days RODY OTERO MD [Staff Physician] - 7 Days Prescriptions: ALBUTEROL Inhaler [ProAir HFA Inhaler] 2 puff IH QID PRN #1 inhalation PRN Reason: Shortness Of Breath Benzonatate [Tessalon Perles] 100 mg PO Q8HR #15 capsule Levofloxacin [Levaquin TAB] 500 mg PO QDAY #5 tablet
[2016-12-16 17:23] VITALS: BP 133/92
== END 2016-12-16 17:55 | disposition home or self-care (01) | DRG 871 ==
LOC: ED 19:53 → 4A 12-10 00:46 → 3A 12-12 22:05
PROVIDERS: ADMIT Internal Medicine; ATTEND Internal Medicine
PROC: 4A02XM4 Measurement of Cardiac Total Activity, External Approach (ICD-10-PCS; 2016-12-10)
PROC: 3E0234Z Introduction of Serum, Toxoid and Vaccine into Muscle, Percutaneous Approach (ICD-10-PCS; 2016-12-10)
PROC: 4A033R1 Measurement of Arterial Saturation, Peripheral, Percutaneous Approach (ICD-10-PCS; principal; 2016-12-13)
DX: A41.9 Sepsis, unspecified organism (principal); J18.1 Lobar pneumonia, unspecified organism; E87.1 Hypo-osmolality and hyponatremia; E04.1 Nontoxic single thyroid nodule; D72.829 Elevated white blood cell count, unspecified; R91.8 Other nonspecific abnormal finding of lung field; I10 Essential (primary) hypertension; M19.90 Unspecified osteoarthritis, unspecified site; F12.90 Cannabis use, unspecified, uncomplicated; J98.4 Other disorders of lung; E11.65 Type 2 diabetes mellitus with hyperglycemia; E04.9 Nontoxic goiter, unspecified; Z23 Encounter for immunization
CPT/HCPCS: 36415; 36600; 71010; 71275; 76536; 78452; 80048; 82164; 82803; 82962; 83036; 83735; 84443; 84484; 85007; 85025; 85379; 86021; 86038; 86618; 87040; 90732; 93005; 93010; 93017; 94640; 96365; 96375; A9502; J0360; J0456; J0696; J1644; J1815; J1956; J2270; J2405; J2785; J7050; Q9967